=== PATIENT | male | born 1980 | race American Indian/Alaskan Native ===

== ENCOUNTER 2019-08-09 12:00 | Observation (INO) | payer MEDICAID, OTHER ==
[~2019-08-09 12:00] MED LIST: Albuterol/Ipratropium 3.0-0.5 MG/3 ML Neb Soln NEB ONE
[2019-08-09] MEDS ORDERED: Albuterol/Ipratropium 3.0-0.5 MG/3 ML Neb Soln NEB ONE (12:16)
[2019-08-09] MEDS ORDERED: methylPREDNISolone Sodium Succinate 125 MG/2 ML SDV IVPUSH ONE (12:16)
[2019-08-09] MEDS ORDERED: Magnesium Sulfate/Water 100 ML IV ONE (12:17)
[2019-08-09 13:42] LABS: ANION GAP 13.3 mEq/L (7-13); CHLORIDE,CL 102 mmol/L (98-107); SODIUM,NA 138 mmol/L (136-145)
--- NOTE | 2019-08-09 13:46 | CR ---
PROCEDURE INFORMATION: Exam: XR Chest, 1 View Exam date and time: 08/09/2019 1:07 PM Age: 39 years old Clinical indication: Shortness of breath; Asthma. TECHNIQUE: Imaging protocol: XR of the chest Views: 1 view. COMPARISON: CR CHEST PA/LAT 02/06/2008 6:10 AM FINDINGS: Lungs: The lungs are somewhat hyperinflated, and there is bilateral central bronchial wall thickening, which can be seen with asthma. No focal peripheral lung consolidation, air bronchogram formation, or silhouette sign. Pleural space: No pleural effusion or pneumothorax. Heart/Mediastinum: The cardiac silhouette is not enlarged. The mediastinal contours are normal. Bones/joints: No acute osseous abnormality. Soft tissues: There is a small left epicardial fat pad. IMPRESSION: Findings which can be seen with asthma. No pneumonia.
[2019-08-09 14:13] LABS: BASE EXCESS ARTERIAL -3 mmol/L ((-2)-(+3)); BICARBONATE,ARTERIAL 20.6 mmol/L (22-26); O2 DELIVERY DEVICE NASAL CANNULA; O2 SATURATION ARTERIAL 92 % (95-100); PCO2 ARTERIAL 36 mmHg (35-45); PO2 ARTERIAL 69 mmHg (70-100)
[2019-08-09 14:14] LABS: ALLEN TEST PERFORMED
--- NOTE | 2019-08-09 14:59 | EDM.PDOC ---
Scribed by Cleopatra Mason 08/09/19 1174 for Robert Delgado MD ED HPI GENERAL MEDICAL PROBLEM - General Chief Complaint: Asthma Stated Complaint: AMBULANCE Time Seen by Provider: 08/09/19 12:03 Source of Information: Reports: Patient, EMS, EMS Notes Reviewed, RN, RN Notes Reviewed - History of Present Illness INITIAL COMMENTS - FREE TEXT/NARRATIVE: Patient arrives to ER by [facility]. Patient has had increasing shortness of breath for the last couple of days, worse today. He has been using inhaler with little relief. He complains of right upper chest wall pain when taking deep breaths. He has been using Musinex DM at home. Pt states he never had any lung problems until last year, when he was diagnosed with asthma and COPD. He continues to smoke cigarettes. Denies fever, chills, edema, rash, any recent travel, or COVID exposures. Onset: Gradual Duration: Getting Worse Location: Reports: Chest Severity: Moderate Improves with: Reports: None Worsens with: Reports: None Associated Symptoms: Reports: No Other Symptoms Generalized Pain Score (Numeric/FACES): 4 - Related Data Allergies Allergy/AdvReac Type Severity Reaction Status Date / Time No Known Allergies Allergy Verified 08/09/19 12:00 Home Meds: Home Meds Fluticasone Propion/Salmeterol [Wixela 250-50 Inhub] 1 puff INH BID 08/09/19 [History] Past Medical History Respiratory History: Reports: Asthma, COPD Social & Family History - Family History Family Medical History: Noncontributory - Tobacco Use Smoking Status *Q: Current Every Day Smoker Tobacco Use Within Last Twelve Months: Cigarettes Years of Tobacco use: 20 Packs/Tins Daily: 0.2 Used Tobacco, but Quit: No Second Hand Smoke Exposure: Yes - Caffeine Use Caffeine Use: Reports: Soda - Recreational Drug Use Recreational Drug Use: No - Living Situation & Occupation Living situation: Reports: with Family ED ROS GENERAL - Review of Systems Review Of Systems: Comprehensive ROS is negative, except as noted in HPI. ED EXAM, GENERAL - Physical Exam Exam: See Below Exam Limited By: No Limitations General Appearance: Alert, No Apparent Distress, Thin Eye Exam: Bilateral Eye: Normal Inspection Nose: Normal Inspection Throat/Mouth: Normal Inspection, Normal Lips, Normal Voice, No Airway Compromise. No: Perioral Cyanosis Head: Atraumatic, Normocephalic Neck: Normal Inspection, Supple, Non-Tender, Full Range of Motion Respiratory/Chest: No Respiratory Distress, No Accessory Muscle Use, Chest Non- Tender, Decreased Breath Sounds, Wheezing. No: Crackles, Rales, Rhonchi, Stridor Cardiovascular: Regular Rate, Rhythm, No Edema, Tachycardia GI/Abdominal: Normal Bowel Sounds, Soft, Non-Tender Back Exam: Normal Inspection Extremities: Normal Inspection, Normal Range of Motion, Non-Tender, Normal Capillary Refill, No Pedal Edema Neurological: Alert, Oriented, CN II-XII Intact, Normal Cognition, No Motor/Sensory Deficits Psychiatric: Normal Affect, Normal Mood Skin Exam: Warm, Dry, Intact, Normal Color, No Rash Course - Vital Signs Last Recorded V/S: Last Vital Signs Temp 98.9 F 08/09/19 12:03 Pulse 108 H 08/09/19 12:32 Resp 24 H 08/09/19 12:03 BP 139/73 08/09/19 12:03 Pulse Ox 84 L 08/09/19 12:03 - Orders/Labs/Meds Orders: Active Orders 24 hr Category Date Time Status RT Aerosol Therapy [RC] ASDIRECTED Care 08/09/19 12:01 Active RT Aerosol Therapy [RC] ASDIRECTED Care 08/09/19 12:17 Active Labs: Laboratory Tests 08/09/19 08/09/19 08/09/19 Range/Units 13:17 13:17 14:06 WBC 10.9 H (5.0-10.0) 10^3/uL RBC 5.16 (4.6-6.2) 10^6/uL Hgb 15.3 (14.0-18.0) g/dL Hct 44.7 (40.0-54.0) % MCV 86.6 (80-100) fL MCH 29.7 (27.0-34.0) pg MCHC 34.2 (33.0-35.0) g/dL Plt Count 343 (150-450) 10^3/uL Neut % (Auto) 68.1 (42.2-75.2) % Lymph % (Auto) 17.4 L (20.5-50.1) % Lyman % (Auto) 5.5 (2-8) % Eos % (Auto) 8.6 H (1.0-3.0) % Baso % (Auto) 0.4 (0.0-1.0) % ABG pH 7.38 (7.35-7.45) ABG pCO2 36 (35-45) mmHg ABG pO2 69 L (70-100) mmHg ABG HCO3 20.6 L (22-26) mmol/L ABG O2 Saturation 92 L (95-100) % ABG Base Excess -3 L ((-2)-(+3)) mmol/L Basil Test Performed O2 Delivery Device Nasal cannula Sodium 138 (136-145) mmol/L Potassium 4.3 (3.5-5.1) mmol/L Chloride 102 (98-107) mmol/L Carbon Dioxide 27 (21-32) mmol/L Anion Gap 13.3 H (7-13) mEq/L BUN 7 (7-18) mg/dL Creatinine 0.96 (0.70-1.30) mg/dL Est Cr Clr Drug Dosing 87.74 mL/min Estimated GFR (MDRD) > 60 BUN/Creatinine Ratio 7.3 (No establ ref range) Glucose 126 H (74-99) mg/dL Calcium 9.4 (8.5-10.1) mg/dL Total Bilirubin 0.6 (0.2-1.0) mg/dL AST 21 (15-37) U/L ALT 36 (16-63) U/L Alkaline Phosphatase 89 (46-116) U/L Total Protein 8.1 (6.4-8.2) g/dL Albumin 4.4 (3.4-5.0) g/dL Globulin 3.7 Albumin/Globulin Ratio 1.2 SARS-CoV-2 RNA (RT-PCR) (NEGATIVE) 08/09/19 Range/Units 14:25 WBC (5.0-10.0) 10^3/uL RBC (4.6-6.2) 10^6/uL Hgb (14.0-18.0) g/dL Hct (40.0-54.0) % MCV (80-100) fL MCH (27.0-34.0) pg MCHC (33.0-35.0) g/dL Plt Count (150-450) 10^3/uL Neut % (Auto) (42.2-75.2) % Lymph % (Auto) (20.5-50.1) % Lyman % (Auto) (2-8) % Eos % (Auto) (1.0-3.0) % Baso % (Auto) (0.0-1.0) % ABG pH (7.35-7.45) ABG pCO2 (35-45) mmHg ABG pO2 (70-100) mmHg ABG HCO3 (22-26) mmol/L ABG O2 Saturation (95-100) % ABG Base Excess ((-2)-(+3)) mmol/L Basil Test O2 Delivery Device Sodium (136-145) mmol/L Potassium (3.5-5.1) mmol/L Chloride (98-107) mmol/L Carbon Dioxide (21-32) mmol/L Anion Gap (7-13) mEq/L BUN (7-18) mg/dL Creatinine (0.70-1.30) mg/dL Est Cr Clr Drug Dosing mL/min Estimated GFR (MDRD) BUN/Creatinine Ratio (No establ ref range) Glucose (74-99) mg/dL Calcium (8.5-10.1) mg/dL Total Bilirubin (0.2-1.0) mg/dL AST (15-37) U/L ALT (16-63) U/L Alkaline Phosphatase (46-116) U/L Total Protein (6.4-8.2) g/dL Albumin (3.4-5.0) g/dL Globulin Albumin/Globulin Ratio SARS-CoV-2 RNA (RT-PCR) Negative (NEGATIVE) Meds: Medications Discontinued Medications Generic Name Dose Route Start Last Admin Trade Name Romana PRN Reason Stop Dose Admin Albuterol/Ipratropium 3 ml 08/09/19 12:00 08/09/19 12:02 Duoneb 3.0-0.5 Mg/3 Ml NEB 08/09/19 12:01 3 ml ONETIME ONE Administration Albuterol/Ipratropium 3 ml 08/09/19 12:16 08/09/19 12:23 Duoneb 3.0-0.5 Mg/3 Ml NEB 08/09/19 12:17 3 ml ONETIME ONE Administration Magnesium Sulfate 100 mls @ 200 mls/hr 08/09/19 12:17 08/09/19 12:27 Magnesium Sulfate In Water Premix IV 08/09/19 12:46 200 mls/hr ONETIME ONE Administration Methylprednisolone Sodium Succinate 125 mg 08/09/19 12:16 08/09/19 12:19 Solu-Medrol IVPUSH 08/09/19 12:17 125 mg ONETIME ONE Administration - Radiology Interpretation Free Text/Narrative:: [facility] [place] [facility] Final Radiology Report Call: [phone] assistance Online chat: [email or web address] Name: PAT BERMAN III Age: 39Years M Date: 08/09/2019 SSN: -- : [id number] Study: CR CHEST 1V FRONTAL Requesting Physician: ROBERT DELGADO Images: 1 Addl Studies: Provided Clinical History: SOB Contrast: Contrast Medium: Contrast Amount: Contrast Method: CONFIDENTIALITY STATEMENT This report is intended only for use by the referring physician, and only in accordance with law. If you received this in error, call [phone]. Page 1 of 1 PROCEDURE INFORMATION: Exam: XR Chest, 1 View Exam date and time: 08/09/2019 1:07 PM Age: 39 years old Clinical indication: Shortness of breath; Asthma. TECHNIQUE: Imaging protocol: XR of the chest Views: 1 view. COMPARISON: CR CHEST PA/LAT 02/06/2008 6:10 AM FINDINGS: Lungs: The lungs are somewhat hyperinflated, and there is bilateral central bronchial wall thickening, which can be seen with asthma. No focal peripheral lung consolidation, air bronchogram formation, or silhouette sign. Pleural space: No pleural effusion or pneumothorax. Heart/Mediastinum: The cardiac silhouette is not enlarged. The mediastinal contours are normal. Bones/joints: No acute osseous abnormality. Soft tissues: There is a small left epicardial fat pad. IMPRESSION: Findings which can be seen with asthma. No pneumonia. Thank you for allowing us to participate in the care of your patient. Dictated and Authenticated by: Vini Saeed MD 08/09/2019 1:45 PM Central Time ([place] & [place]) - Re-Assessments/Exams Free Text/Narrative Re-Assessment/Exam: 08/09/19 14:57 Plan to admit pt to Dr. Valerio for exacerbation of asthma/COPD. Departure - Departure Time of Disposition: 14:58 (admitted to Dr. Valerio) Disposition: Admitted As Inpatient 65 Condition: Fair Clinical Impression: Acute exacerbation of COPD with asthma - Discharge Information *PRESCRIPTION DRUG MONITORING PROGRAM REVIEWED*: Not Applicable *COPY OF PRESCRIPTION DRUG MONITORING REPORT IN PATIENT ABDIAZIZ: Not Applicable Forms: ED Department Discharge Sepsis Event Note (ED) - Evaluation Sepsis Screening Result: No Definite Risk - Focused Exam Vital Signs: Vital Signs Temp Pulse Resp BP Pulse Ox 08/09/19 12:32 108 H 08/09/19 12:03 98.9 F 110 H 24 H 139/73 84 L 08/09/19 12:01 110 H - My Orders Last 24 Hours: My Active Orders 08/09/19 12:01 RT Aerosol Therapy [RC] ASDIRECTED 08/09/19 12:17 RT Aerosol Therapy [RC] ASDIRECTED - Assessment/Plan Last 24 Hours: My Active Orders 08/09/19 12:01 RT Aerosol Therapy [RC] ASDIRECTED 08/09/19 12:17 RT Aerosol Therapy [RC] ASDIRECTED I have read and agree with the documentation that has been completed regarding this visit. By signing this record, I attest that the documentation was completed in my physical presence and is an accurate record of the encounter.
--- NOTE | 2019-08-09 15:50 | PCM.HP ---
H&P History of Present Illness - General Date of Service: 08/09/19 Admit Problem/Dx: Admitted with : Asthma/COPD exacerbation Source of Information: Patient, EMS Notes Reviewed, Old Records History Limitations: Reports: No Limitations - History of Present Illness Initial Comments - Free Text/Narative: This is a 39 Y/O M with history of smoking, started smoke at age 18 and still smoking. He said he was told 10 years ag o he has COPD but did not see any lung doctor, he says 3 months ago he was told that he needs to see lung doctor but no appointment has been made. Today ( 08/08) the Patient arrives to ER by [facility]. Patient has had increasing shortness of breath for the last couple of days, worse today said aftrer the rain last night it is getting more difficult to breath . He has been using inhaler with little relief. He complains of right upper chest wall pain when taking deep breaths. He has been using Musinex DM at home. Pt states he never had any lung problems like this He continues to smoke cigarettes. Denies fever, chills, edema, rash, any recent travel, or COVID expos ures. His rapid Covid-19 was negative. He is admitted for Asthma/COPD exacerbation. He had CXR that showed hyperinflated lung, no pleural effusion or pulmonary edema, ni significant infiltrates. Onset of Symptoms: Reports: Gradual Duration of Symptoms: Reports: Day(s): Associated Symptoms: Reports: Shortness of Breath Generalized Pain Score (Numeric/FACES): 4 - Related Data Allergies/Adverse Reactions: Allergies Allergy/AdvReac Type Severity Reaction Status Date / Time No Known Allergies Allergy Verified 08/09/19 12:00 Home Medications: Home Meds Fluticasone Propion/Salmeterol [Wixela 250-50 Inhub] 1 puff INH BID 08/09/19 [History] Past Medical History HEENT History: Reports: None Cardiovascular History: Reports: SOB on Exertion Respiratory History: Reports: Asthma, COPD, SOB Gastrointestinal History: Reports: GERD Musculoskeletal History: Reports: Back Pain, Chronic Other Musculoskeletal History: hx. fracture 5th vertabrea Psychiatric History: Reports: Addiction - Infectious Disease History Infectious Disease History: Reports: None - Past Surgical History Other HEENT Surgeries/Procedures: fingernail caught in right eye back in 4 or 5th grade. Wore a patch and put dye in. Cardiovascular Surgical History: Reports: None Respiratory Surgical History: Reports: None GI Surgical History: Reports: None Musculoskeletal Surgical History: Reports: None Social & Family History - Family History Family Medical History: Noncontributory - Tobacco Use Smoking Status *Q: Current Every Day Smoker Years of Tobacco use: 21 Packs/Tins Daily: 0.2 Used Tobacco, but Quit: No Second Hand Smoke Exposure: No - Caffeine Use Caffeine Use: Reports: Coffee, Soda - Recreational Drug Use Recreational Drug Use: Yes Drug Use in Last 12 Months: Yes Recreational Drug Type: Reports: Marijuana/Hashish Other Recreational Drug Type: last used THC yesterday Recreational Drug Use Frequency: Daily - Living Situation & Occupation Living situation: Reports: with Family H&P Review of Systems - Review of Systems: Review Of Systems: See Below General: Reports: Weakness. Denies: Fever, Chills, Weight Loss, Weight Gain HEENT: Denies: Dysphasia, Hearing Changes, Sinus Congestion, Sore Throat, Visual Changes Pulmonary: Reports: Shortness of Breath, Wheezing. Denies: Pleuritic Chest Pain, Cough, Sputum Cardiovascular: Reports: Dyspnea on Exertion. Denies: Chest Pain, Orthopnea, Edema, Lightheadedness Gastrointestinal: Denies: Abdominal Pain, Diarrhea, Difficulty Swallowing, Vomiting Genitourinary: Denies: Dysuria, Frequency, Burning, Hematuria, Flank Pain Musculoskeletal: Denies: Neck Pain, Shoulder Pain, Leg Pain, Muscle Stiffness Skin: Denies: Cyanosis, Jaundice, Bruising, Pruritis, Rash Psychiatric: Denies: Confusion, Anxiety, Agitation Neurological: Denies: Confusion, Dizziness, Tremors, Difficulty Walking Hematologic/Lymphatic: Reports: No Symptoms Immunologic: Reports: No Symptoms Exam - Exam Exam: See Below - Vital Signs Vital Signs: Last Vital Signs Temp 37.2 C 08/09/19 12:03 Pulse 108 H 08/09/19 12:32 Resp 24 H 08/09/19 12:03 BP 139/73 08/09/19 12:03 Pulse Ox 84 L 08/09/19 12:03 Weight: 60.441 kg - Exam Quality Assessment: Supplemental Oxygen, DVT Prophylaxis. No: Urinary Catheter General: Alert, Oriented, Cooperative, Other (Not in acute Distress) HEENT: Conjunctiva Clear, EOMI, Mucosa Moist & Newell, Pupils Equal Neck: Supple. No: Lymphadenopathy, JVD, Thyromegaly Lungs: Clear to Auscultation, Normal Respiratory Effort, Wheezing Cardiovascular: Regular Rate, Regular Rhythm GI/Abdominal Exam: Normal Bowel Sounds, Non-Tender, No Organomegaly, No Distention. No: Rebound, Tender (Male) Exam: Deferred Rectal (Males) Exam: Deferred Back Exam: Normal Inspection, Full Range of Motion Extremities: Normal Inspection, Non-Tender, No Pedal Edema Skin: Warm, Dry, Intact Neurological: Cranial Nerves Intact, Reflexes Equal Bilateral Neuro Extensive - Mental Status: Alert, Oriented x3, Normal Mood/Affect, Normal Cognition, Memory Intact Neuro Extensive - Motor, Sensory, Reflexes: CN II-XII Intact, Normal Gait, Normal Reflexes Psychiatric: Alert, Normal Affect, Normal Mood - Patient Data Lab Results Last 24 hrs: Laboratory Results - last 24 hr 08/09/19 08/09/19 08/09/19 Range/Units 13:17 13:17 14:06 WBC 10.9 H (5.0-10.0) 10^3/uL RBC 5.16 (4.6-6.2) 10^6/uL Hgb 15.3 (14.0-18.0) g/dL Hct 44.7 (40.0-54.0) % MCV 86.6 (80-100) fL MCH 29.7 (27.0-34.0) pg MCHC 34.2 (33.0-35.0) g/dL Plt Count 343 (150-450) 10^3/uL Neut % (Auto) 68.1 (42.2-75.2) % Lymph % (Auto) 17.4 L (20.5-50.1) % Stewart % (Auto) 5.5 (2-8) % Eos % (Auto) 8.6 H (1.0-3.0) % Baso % (Auto) 0.4 (0.0-1.0) % ABG pH 7.38 (7.35-7.45) ABG pCO2 36 (35-45) mmHg ABG pO2 69 L (70-100) mmHg ABG HCO3 20.6 L (22-26) mmol/L ABG O2 Saturation 92 L (95-100) % ABG Base Excess -3 L ((-2)-(+3)) mmol/L Basil Test Performed O2 Delivery Device Nasal cannula Sodium 138 (136-145) mmol/L Potassium 4.3 (3.5-5.1) mmol/L Chloride 102 (98-107) mmol/L Carbon Dioxide 27 (21-32) mmol/L Anion Gap 13.3 H (7-13) mEq/L BUN 7 (7-18) mg/dL Creatinine 0.96 (0.70-1.30) mg/dL Est Cr Clr Drug Dosing 87.74 mL/min Estimated GFR (MDRD) > 60 BUN/Creatinine Ratio 7.3 (No establ ref range) Glucose 126 H (74-99) mg/dL Calcium 9.4 (8.5-10.1) mg/dL Total Bilirubin 0.6 (0.2-1.0) mg/dL AST 21 (15-37) U/L ALT 36 (16-63) U/L Alkaline Phosphatase 89 (46-116) U/L Total Protein 8.1 (6.4-8.2) g/dL Albumin 4.4 (3.4-5.0) g/dL Globulin 3.7 Albumin/Globulin Ratio 1.2 SARS-CoV-2 RNA (RT-PCR) (NEGATIVE) 08/09/19 Range/Units 14:25 WBC (5.0-10.0) 10^3/uL RBC (4.6-6.2) 10^6/uL Hgb (14.0-18.0) g/dL Hct (40.0-54.0) % MCV (80-100) fL MCH (27.0-34.0) pg MCHC (33.0-35.0) g/dL Plt Count (150-450) 10^3/uL Neut % (Auto) (42.2-75.2) % Lymph % (Auto) (20.5-50.1) % Stewart % (Auto) (2-8) % Eos % (Auto) (1.0-3.0) % Baso % (Auto) (0.0-1.0) % ABG pH (7.35-7.45) ABG pCO2 (35-45) mmHg ABG pO2 (70-100) mmHg ABG HCO3 (22-26) mmol/L ABG O2 Saturation (95-100) % ABG Base Excess ((-2)-(+3)) mmol/L Basil Test O2 Delivery Device Sodium (136-145) mmol/L Potassium (3.5-5.1) mmol/L Chloride (98-107) mmol/L Carbon Dioxide (21-32) mmol/L Anion Gap (7-13) mEq/L BUN (7-18) mg/dL Creatinine (0.70-1.30) mg/dL Est Cr Clr Drug Dosing mL/min Estimated GFR (MDRD) BUN/Creatinine Ratio (No establ ref range) Glucose (74-99) mg/dL Calcium (8.5-10.1) mg/dL Total Bilirubin (0.2-1.0) mg/dL AST (15-37) U/L ALT (16-63) U/L Alkaline Phosphatase (46-116) U/L Total Protein (6.4-8.2) g/dL Albumin (3.4-5.0) g/dL Globulin Albumin/Globulin Ratio SARS-CoV-2 RNA (RT-PCR) Negative (NEGATIVE) Result Diagrams: 08/09/19 13:17 08/09/19 13:17 - Problem List (1) Acute exacerbation of COPD with asthma SNOMED Code(s): 3372149926558 ICD Code: J44.1 - CHRONIC OBSTRUCTIVE PULMONARY DISEASE W (ACUTE) EXACERBATIO N; J45.901 - UNSPECIFIED ASTHMA WITH (ACUTE) EXACERBATION Status: Acute Current Visit: No Problem List Initiated/Reviewed/Updated: Yes Orders Last 24hrs: Active Orders 24 hr Category Date Time Status RT Aerosol Therapy [RC] ASDIRECTED Care 08/09/19 12:17 Active Assessment/Plan Comment:: This is a 39 y/O male with 21 year history of smoking and a current smoker came to ER with Increased shortness of breath and his inhaler did nor Improve his shortness of breath, Impression and plan: 1. Increased shortness of breath: This is secondary to Asthma/COPD exacerbation -Will continue Solumedrol 60 mg IV Q6 hrs -Will start scheduled Due nebs - start Albuterol as needed -Encourage using incentive spirometry and Flutter valve -will start Zosyn -Continue to wean off oxygen as tolerated -discussed about cessation of smoking -He needs to be evaluated at Pulmonary clinic after the Discharge -BMP in AM 2. Smoking: He is a current smoker - place Nicotine patch -Need to quit smoking GI prophylaxis: Start protonix 20 mg daily with breaffast DVT prophylaxis: Start Enoxapain Code Status: Full Code
[2019-08-09] MEDS ORDERED: Docusate Sodium 100 MG Cap PO PRN (16:07)
[2019-08-09] MEDS ORDERED: Albuterol 0.083% 2.5 MG/3 ML Neb Soln NEB PRN (16:51)
[2019-08-09] MEDS: Piperacillin/Tazobactam 3.375 GM in Sodium Chloride 0.9% 100 ML IV SCH ×2 (17:05→23:35)
[2019-08-09] MEDS: Albuterol/Ipratropium 3.0-0.5 MG/3 ML Neb Soln NEB SCH ×2 (18:34→23:08)
[2019-08-09] MEDS ORDERED: Albuterol 0.083% 2.5 MG/3 ML Neb Soln NEB SCH (19:00)
[2019-08-09] MEDS: methylPREDNISolone Sodium Succinate 40 MG/1 ML SDV IVPUSH SCH (20:49)
[2019-08-09] MEDS: diphenhydrAMINE 25 MG Tab PO PRN (20:49)
[2019-08-09] MEDS ORDERED: Non-Formulary Medication 1 Each (Fluticasone Propion/Salmeterol 1 PUFF) INH SCH (21:00)
[2019-08-09] MEDS: Acetaminophen 325 MG Tab PO PRN (23:12)
[2019-08-10] MEDS: diphenhydrAMINE 25 MG Tab PO PRN ×3 (02:35→16:40)
[2019-08-10] MEDS: methylPREDNISolone Sodium Succinate 40 MG/1 ML SDV IVPUSH SCH ×5 (02:35→22:53)
[2019-08-10] MEDS: Albuterol/Ipratropium 3.0-0.5 MG/3 ML Neb Soln NEB SCH ×6 (02:39→23:04)
[2019-08-10] MEDS: Pantoprazole 40 MG Tab.CR PO SCH (05:30)
[2019-08-10] MEDS: Piperacillin/Tazobactam 3.375 GM in Sodium Chloride 0.9% 100 ML IV SCH ×4 (05:30→22:59)
[2019-08-10 06:54] LABS: ANION GAP 13.9 mEq/L (7-13); CHLORIDE,CL 104 mmol/L (98-107); SODIUM,NA 139 mmol/L (136-145)
[2019-08-10] MEDS: Acetaminophen 325 MG Tab PO PRN ×2 (08:59→15:07)
[2019-08-10] MEDS: Enoxaparin 40 MG/0.4 ML Syringe SUBCUT SCH ×2 (09:00→09:07)
[2019-08-10] MEDS: Nicotine 14 MG/24 Hr Patch TRDERM SCH (09:01)
--- NOTE | 2019-08-10 10:58 | PCM.PN ---
- General Info Date of Service: 08/10/19 Admission Dx/Problem (Free Text): Admitted with : Asthma/COPD exacerbation Subjective Update: Today he was seen in room feels much better off supplemental oxygen but still gets short of breath with minor activity. he has no fever, Chill, appetite is good, No nausea or Vomiting Functional Status: Reports: Pain Controlled, Tolerating Diet, Ambulating, Urinating - Review of Systems General: Reports: Weakness, Appetite (acceptable). Denies: Fever, Chills HEENT: Denies: Headaches, Sinus Congestion, Sore Throat, Visual Changes Pulmonary: Reports: Shortness of Breath, Wheezing. Denies: Cough Cardiovascular: Reports: Dyspnea on Exertion. Denies: Chest Pain, Lightheadedness Gastrointestinal: Denies: Abdominal Pain, Difficulty Swallowing, Nausea, Vomiting Genitourinary: Denies: Dysuria, Burning, Urgency, Flank Pain Musculoskeletal: Denies: Neck Pain, Leg Pain, Joint Swelling Skin: Denies: Cyanosis, Jaundice, Bruising, Pruritis, Rash Neurological: Denies: Confusion, Numbness, Tremors Psychiatric: Denies: Confusion, Anxiety, Agitation - Patient Data Vitals - Most Recent: Last Vital Signs Temp 36.9 C 08/10/19 08:00 Pulse 96 08/10/19 08:00 Resp 22 H 08/10/19 08:00 BP 132/82 08/10/19 08:00 Pulse Ox 90 L 08/10/19 09:03 Weight - Most Recent: 60.441 kg I&O - Last 24 Hours: Intake & Output 08/09/19 08/10/19 08/10/19 22:59 06:59 14:59 Intake Total 360 360 Balance 360 360 Lab Results Last 24 Hours: Laboratory Results - last 24 hr 08/09/19 08/09/19 08/09/19 Range/Units 13:17 13:17 14:06 WBC 10.9 H (5.0-10.0) 10^3/uL RBC 5.16 (4.6-6.2) 10^6/uL Hgb 15.3 (14.0-18.0) g/dL Hct 44.7 (40.0-54.0) % MCV 86.6 (80-100) fL MCH 29.7 (27.0-34.0) pg MCHC 34.2 (33.0-35.0) g/dL Plt Count 343 (150-450) 10^3/uL Neut % (Auto) 68.1 (42.2-75.2) % Lymph % (Auto) 17.4 L (20.5-50.1) % Bee % (Auto) 5.5 (2-8) % Eos % (Auto) 8.6 H (1.0-3.0) % Baso % (Auto) 0.4 (0.0-1.0) % ABG pH 7.38 (7.35-7.45) ABG pCO2 36 (35-45) mmHg ABG pO2 69 L (70-100) mmHg ABG HCO3 20.6 L (22-26) mmol/L ABG O2 Saturation 92 L (95-100) % ABG Base Excess -3 L ((-2)-(+3)) mmol/L Basil Test Performed O2 Delivery Device Nasal cannula Sodium 138 (136-145) mmol/L Potassium 4.3 (3.5-5.1) mmol/L Chloride 102 (98-107) mmol/L Carbon Dioxide 27 (21-32) mmol/L Anion Gap 13.3 H (7-13) mEq/L BUN 7 (7-18) mg/dL Creatinine 0.96 (0.70-1.30) mg/dL Est Cr Clr Drug Dosing 87.74 mL/min Estimated GFR (MDRD) > 60 BUN/Creatinine Ratio 7.3 (No establ ref range) Glucose 126 H (74-99) mg/dL Calcium 9.4 (8.5-10.1) mg/dL Total Bilirubin 0.6 (0.2-1.0) mg/dL AST 21 (15-37) U/L ALT 36 (16-63) U/L Alkaline Phosphatase 89 (46-116) U/L Total Protein 8.1 (6.4-8.2) g/dL Albumin 4.4 (3.4-5.0) g/dL Globulin 3.7 Albumin/Globulin Ratio 1.2 SARS-CoV-2 RNA (RT-PCR) (NEGATIVE) 08/09/19 08/10/19 08/10/19 Range/Units 14:25 06:15 06:15 WBC 7.9 (5.0-10.0) 10^3/uL RBC 4.84 (4.6-6.2) 10^6/uL Hgb 14.2 (14.0-18.0) g/dL Hct 41.4 (40.0-54.0) % MCV 85.5 (80-100) fL MCH 29.3 (27.0-34.0) pg MCHC 34.3 (33.0-35.0) g/dL Plt Count 337 (150-450) 10^3/uL Neut % (Auto) 92.5 H (42.2-75.2) % Lymph % (Auto) 6.6 L (20.5-50.1) % Bee % (Auto) 0.9 L (2-8) % Eos % (Auto) 0.0 L (1.0-3.0) % Baso % (Auto) 0.0 (0.0-1.0) % ABG pH (7.35-7.45) ABG pCO2 (35-45) mmHg ABG pO2 (70-100) mmHg ABG HCO3 (22-26) mmol/L ABG O2 Saturation (95-100) % ABG Base Excess ((-2)-(+3)) mmol/L Basil Test O2 Delivery Device Sodium 139 (136-145) mmol/L Potassium 3.9 (3.5-5.1) mmol/L Chloride 104 (98-107) mmol/L Carbon Dioxide 25 (21-32) mmol/L Anion Gap 13.9 H (7-13) mEq/L BUN 10 (7-18) mg/dL Creatinine 0.83 (0.70-1.30) mg/dL Est Cr Clr Drug Dosing 101.14 mL/min Estimated GFR (MDRD) > 60 BUN/Creatinine Ratio (No establ ref range) Glucose 146 H (74-99) mg/dL Calcium 9.1 (8.5-10.1) mg/dL Total Bilirubin (0.2-1.0) mg/dL AST (15-37) U/L ALT (16-63) U/L Alkaline Phosphatase (46-116) U/L Total Protein (6.4-8.2) g/dL Albumin (3.4-5.0) g/dL Globulin Albumin/Globulin Ratio SARS-CoV-2 RNA (RT-PCR) Negative (NEGATIVE) Med Orders - Current: Current Medications Acetaminophen (Tylenol) 650 mg PO Q4H PRN PRN Reason: Pain (mild 1-3 )/fever Last Admin: 08/10/19 08:59 Dose: 650 mg Documented by: Albuterol (Proventil Neb Soln) 2.5 mg NEB Q4HRRT PRN PRN Reason: Shortness of Breath Albuterol/Ipratropium (Duoneb 3.0-0.5 Mg/3 Ml) 3 ml NEB Q4HRRT [facility] Last Admin: 08/10/19 08:28 Dose: 3 ml Documented by: Diphenhydramine HCl (Benadryl) 25 mg PO QID PRN PRN Reason: Itching Last Admin: 08/10/19 08:59 Dose: 25 mg Documented by: Docusate Sodium (Colace) 100 mg PO DAILY PRN PRN Reason: Constipation Enoxaparin Sodium (Lovenox) 40 mg SUBCUT DAILY [facility] Last Admin: 08/10/19 09:07 Dose: Not Given Documented by: Piperacillin Sod/Tazobactam (Sod 3.375 gm/ Sodium Chloride) 100 mls @ 200 mls/hr IV Q6H [facility] Last Admin: 08/10/19 05:30 Dose: 200 mls/hr Documented by: Methylprednisolone Sodium Succinate (Solu-Medrol) 60 mg IVPUSH Q6H [facility] Last Admin: 08/10/19 09:04 Dose: 60 mg Documented by: Nicotine (Habitrol) 14 mg TRDERM DAILY [facility] Last Admin: 08/10/19 09:01 Dose: 14 mg Documented by: Non-Formulary Medication (Fluticasone Propion/Salmeterol) 1 puff INH BID [facility] Pantoprazole Sodium (Protonix) 40 mg PO ACBREAKFAST [facility] Last Admin: 08/10/19 05:30 Dose: 40 mg Documented by: Discontinued Medications Albuterol (Proventil Neb Soln) 2.5 mg NEB Q4HRRT [facility] Albuterol/Ipratropium (Duoneb 3.0-0.5 Mg/3 Ml) 3 ml NEB ONETIME ONE Stop: 08/09/19 12:01 Last Admin: 08/09/19 12:02 Dose: 3 ml Documented by: Albuterol/Ipratropium (Duoneb 3.0-0.5 Mg/3 Ml) 3 ml NEB ONETIME ONE Stop: 08/09/19 12:17 Last Admin: 08/09/19 12:23 Dose: 3 ml Documented by: Magnesium Sulfate (Magnesium Sulfate In Water Premix) 100 mls @ 200 mls/hr IV ONETIME ONE Stop: 08/09/19 12:46 Last Admin: 08/09/19 12:27 Dose: 200 mls/hr Documented by: Methylprednisolone Sodium Succinate (Solu-Medrol) 125 mg IVPUSH ONETIME ONE Stop: 08/09/19 12:17 Last Admin: 08/09/19 12:19 Dose: 125 mg Documented by: - Exam Quality Assessment: DVT Prophylaxis. No: Urine Catheter General: Alert, Oriented, Cooperative, No Acute Distress HEENT: Pupils Equal, Pupils Reactive, EOMI, Mucous Membr. Moist/Farm Loop Neck: Supple, No JVD, No Thyromegaly Lungs: Clear to Auscultation, Normal Respiratory Effort, Wheezing (mild) Cardiovascular: Regular Rate, Regular Rhythm, No Murmurs GI/Abdominal Exam: Normal Bowel Sounds, Soft, Non-Tender, No Distention. No: Guarding, Rebound (Male) Exam: Deferred Back Exam: Normal Inspection, Full Range of Motion Extremities: Normal Inspection, No Pedal Edema Skin: Warm, Dry, Intact Neurological: No New Focal Deficit Psy/Mental Status: Alert, Normal Affect, Normal Mood Sepsis Event Note - Evaluation Sepsis Screening Result: No Definite Risk - Focused Exam Vital Signs: Vital Signs Temp Pulse Resp BP Pulse Ox Pulse Ox Pulse Ox 08/10/19 09:03 90 L 08/10/19 08:00 36.9 C 96 22 H 132/82 94 L 08/10/19 02:45 75 93 L 08/10/19 02:43 37.1 C 118 H 20 140/75 93 L Date Exam was Performed: 08/10/19 Time Exam was Performed: 10:53 - Problem List & Annotations (1) Acute exacerbation of COPD with asthma SNOMED Code(s): 7724669908309 Code(s): J44.1 - CHRONIC OBSTRUCTIVE PULMONARY DISEASE W (ACUTE) EXACE RBATION; J45.901 - UNSPECIFIED ASTHMA WITH (ACUTE) EXACERBATION Status: Acute Current Visit: No - Problem List Review Problem List Initiated/Reviewed/Updated: Yes - My Orders Last 24 Hours: My Active Orders 08/09/19 16:07 Patient Status [ADT] Routine Up With Assistance [RC] ASDIRECTED Vital Signs [RC] 00,04,08,12,16,20 Acetaminophen [Tylenol] 650 mg PO Q4H PRN Docusate Sodium [Colace] 100 mg PO DAILY PRN DVT/VTE Prophylaxis Reflex [OM.PC] Routine Resuscitation Status Routine 08/09/19 16:11 Pulse Oximetry [RC] PRN 08/09/19 16:12 Antiembolic Devices [RC] .Routine VTE/DVT Education [RC] PER UNIT ROUTINE 08/09/19 16:22 Flutter Valve Therapy [RT Chest Physiotherapy] [RC] ASDIRECTED Incentive Spirometry [RT Incentive Spirometry] [RC] Q2HWA 08/09/19 16:51 Albuterol [Proventil Neb Soln] 2.5 mg NEB Q4HRRT PRN 08/09/19 16:52 RT Aerosol Therapy [RC] ASDIRECTED 08/09/19 17:00 Piperacillin/Tazobactam [Zosyn] 3.375 gm Sodium Chloride 0.9% [Normal Saline] 100 ml IV Q6H 08/09/19 Dinner Regular Diet [DIET] 08/09/19 19:00 Albuterol/Ipratropium [DuoNeb 3.0-0.5 MG/3 ML] 3 ml NEB Q4HRRT 08/09/19 20:00 methylPREDNISolone Sod Succ [Solu-MEDROL] 60 mg IVPUSH Q6H 08/09/19 20:33 diphenhydrAMINE [Benadryl] 25 mg PO QID PRN 08/09/19 21:00 Fluticasone Propion/Salmeterol 1 puff INH BID 08/10/19 06:00 Pantoprazole [ProTONIX] 40 mg PO ACBREAKFAST 08/10/19 09:00 Enoxaparin [Lovenox] 40 mg SUBCUT DAILY Nicotine [Habitrol] 14 mg TRDERM DAILY - Plan Plan:: This is a 39 y/O male with 21 year history of smoking and a current smoker came to ER with Increased shortness of breath and his inhaler did nor Improve his shortness of breath, Impression and plan: 1. Increased shortness of breath: This is secondary to Asthma/COPD exacerbation -Will change Solumedrol to 40 mg IV q6 hrs [ was at 60 mg IV Q6 hrs ] -Will continue scheduled Due nebs - will continue Albuterol as needed -Encourage using incentive spirometry and Flutter valve -will continue Zosyn -Continue to wean off oxygen as tolerated -discussed about cessation of smoking -He needs to be evaluated at Pulmonary clinic after the Discharge -BMP in AM 2. Smoking: He is a current smoker - place Nicotine patch -Need to quit smoking GI prophylaxis: Continue protonix 40 mg daily with breaffast DVT prophylaxis: continue Enoxapain Code Status: Full Code
[2019-08-10] MEDS ORDERED: Ondansetron 4 MG/2 ML SDV IVPUSH ONE (12:16)
[2019-08-10] MEDS ORDERED: Ondansetron 4 MG/2 ML SDV IVPUSH PRN (18:21)
[2019-08-11] MEDS: diphenhydrAMINE 25 MG Tab PO PRN ×2 (00:25→06:16)
[2019-08-11] MEDS: Albuterol/Ipratropium 3.0-0.5 MG/3 ML Neb Soln NEB SCH ×3 (03:07→15:21)
[2019-08-11] MEDS: methylPREDNISolone Sodium Succinate 40 MG/1 ML SDV IVPUSH SCH ×2 (05:32→15:22)
[2019-08-11] MEDS: Piperacillin/Tazobactam 3.375 GM in Sodium Chloride 0.9% 100 ML IV SCH (05:38)
[2019-08-11] MEDS: Pantoprazole 40 MG Tab.CR PO SCH (06:16)
[2019-08-11 06:50] LABS: ANION GAP 11.6 mEq/L (7-13); CHLORIDE,CL 103 mmol/L (98-107); SODIUM,NA 139 mmol/L (136-145)
[2019-08-11] MEDS: Nicotine 14 MG/24 Hr Patch TRDERM SCH (08:32)
[2019-08-11] MEDS: Enoxaparin 40 MG/0.4 ML Syringe SUBCUT SCH (08:33)
--- NOTE | 2019-08-11 10:03 | PCM.DCSUM1 ---
Discharge Summary - Hospital Course Free Text/Narrative:: This is a 39 y/O male with 21 year history of Asthma and a current smoker came to ER with Increased shortness of breath and his inhaler did not improve his shortness of breath, Impression and plan: 1. 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) Diagnosis: Stroke: No - Discharge Data Discharge Date: 08/11/19 Discharge Disposition: Home, Self-Care 01 Condition: Good - Referral to Home Health Primary Care Physician: [facility] - Patient Instructions Diet: Usual Diet as Tolerated Activity: As Tolerated - Discharge Plan *PRESCRIPTION DRUG MONITORING PROGRAM REVIEWED*: Not Applicable *COPY OF PRESCRIPTION DRUG MONITORING REPORT IN PATIENT ABDIAZIZ: Not Applicable Prescriptions/Med Rec: predniSONE [Prednisone] 20 mg PO DAILY #7 tablet Home Medications: Home Meds Albuterol Sulfate [Proair Hfa] 2 puff IH ASDIRECTED PRN 08/09/19 [History] Fluticasone Propion/Salmeterol [Wixela 250-50 Inhub] 1 puff INH BID 08/09/19 [History] predniSONE [Prednisone] 20 mg PO DAILY #7 tablet 08/11/19 [Rx] Oxygen Therapy Mode: Room Air Patient Handouts: Shortness of Breath, Adult, [id number] [facility] - - Discharge Summary/Plan Comment DC Time >30 min.: No - General Info Date of Service: 08/11/19 Functional Status: Reports: Pain Controlled - Review of Systems General: Denies: Fever, Weakness Pulmonary: Denies: Shortness of Breath Cardiovascular: Denies: Chest Pain, Edema Gastrointestinal: Denies: Abdominal Pain - Patient Data Vitals - Most Recent: Last Vital Signs Temp 98.9 F 08/11/19 07:53 Pulse 107 H 08/11/19 07:53 Resp 21 H 08/11/19 07:53 BP 110/71 08/11/19 07:53 Pulse Ox 96 08/11/19 07:53 Weight - Most Recent: 133 lb 4 oz I&O - Last 24 hours: Intake & Output 08/10/19 08/11/19 08/11/19 22:59 06:59 14:59 Intake Total 400 200 225 Balance 400 200 225 Lab Results - Last 24 hrs: Laboratory Results - last 24 hr 08/11/19 Range/Units 06:18 Sodium 139 (136-145) mmol/L Potassium 4.6 (3.5-5.1) mmol/L Chloride 103 (98-107) mmol/L Carbon Dioxide 29 (21-32) mmol/L Anion Gap 11.6 (7-13) mEq/L BUN 14 (7-18) mg/dL Creatinine 0.88 (0.70-1.30) mg/dL Est Cr Clr Drug Dosing 95.39 mL/min Estimated GFR (MDRD) > 60 Glucose 127 H (74-99) mg/dL Calcium 9.4 (8.5-10.1) mg/dL Med Orders - Current: Current Medications Acetaminophen (Tylenol) 650 mg PO Q4H PRN PRN Reason: Pain (mild 1-3 )/fever Last Admin: 08/10/19 15:07 Dose: 650 mg Documented by: Albuterol (Proventil Neb Soln) 2.5 mg NEB Q4HRRT PRN PRN Reason: Shortness of Breath Albuterol/Ipratropium (Duoneb 3.0-0.5 Mg/3 Ml) 3 ml NEB Q4HRRT [facility] Last Admin: 08/11/19 07:20 Dose: 3 ml Documented by: Diphenhydramine HCl (Benadryl) 25 mg PO QID PRN PRN Reason: Itching Last Admin: 08/11/19 06:16 Dose: 25 mg Documented by: Docusate Sodium (Colace) 100 mg PO DAILY PRN PRN Reason: Constipation Enoxaparin Sodium (Lovenox) 40 mg SUBCUT DAILY [facility] Last Admin: 08/11/19 08:33 Dose: Not Given Documented by: Piperacillin Sod/Tazobactam (Sod 3.375 gm/ Sodium Chloride) 100 mls @ 200 mls/hr IV Q6HR [facility] Methylprednisolone Sodium Succinate (Solu-Medrol) 40 mg IVPUSH Q6H [facility] Last Admin: 08/11/19 05:32 Dose: 40 mg Documented by: Miscellaneous Information (Check Patch) 1 ea TRDERM BEDTIME [facility] Nicotine (Habitrol) 14 mg TRDERM DAILY [facility] Last Admin: 08/11/19 08:32 Dose: 14 mg Documented by: Non-Formulary Medication (Fluticasone Propion/Salmeterol) 1 puff INH BID [facility] Ondansetron HCl (Zofran) 4 mg IVPUSH Q6H PRN PRN Reason: Nausea/Vomiting Last Admin: 08/10/19 18:37 Dose: 4 mg Documented by: Pantoprazole Sodium (Protonix) 40 mg PO ACBREAKFAST [facility] Last Admin: 08/11/19 06:16 Dose: 40 mg Documented by: Discontinued Medications Albuterol (Proventil Neb Soln) 2.5 mg NEB Q4HRRT [facility] Albuterol/Ipratropium (Duoneb 3.0-0.5 Mg/3 Ml) 3 ml NEB ONETIME ONE Stop: 08/09/19 12:01 Last Admin: 08/09/19 12:02 Dose: 3 ml Documented by: Albuterol/Ipratropium (Duoneb 3.0-0.5 Mg/3 Ml) 3 ml NEB ONETIME ONE Stop: 08/09/19 12:17 Last Admin: 08/09/19 12:23 Dose: 3 ml Documented by: Magnesium Sulfate (Magnesium Sulfate In Water Premix) 100 mls @ 200 mls/hr IV ONETIME ONE Stop: 08/09/19 12:46 Last Admin: 08/09/19 12:27 Dose: 200 mls/hr Documented by: Piperacillin Sod/Tazobactam (Sod 3.375 gm/ Sodium Chloride) 100 mls @ 200 mls/hr IV Q6H [facility] Last Infusion: 08/11/19 06:15 Dose: Infused Documented by: Methylprednisolone Sodium Succinate (Solu-Medrol) 125 mg IVPUSH ONETIME ONE Stop: 08/09/19 12:17 Last Admin: 08/09/19 12:19 Dose: 125 mg Documented by: Methylprednisolone Sodium Succinate (Solu-Medrol) 60 mg IVPUSH Q6H [facility] Last Admin: 08/10/19 09:04 Dose: 60 mg Documented by: Ondansetron HCl (Zofran) 4 mg IVPUSH ONETIME ONE Stop: 08/10/19 12:17 Last Admin: 07/05/20 12:32 Dose: 4 mg Documented by: - Exam Quality Assessment: Denies: Supplemental Oxygen General: Reports: Alert, Oriented Lungs: Reports: Wheezing (mild b/l ) Cardiovascular: Reports: Regular Rate, Regular Rhythm GI/Abdominal Exam: Normal Bowel Sounds, Soft, Non-Tender Extremities: No Pedal Edema
[2019-08-11] MEDS ORDERED: Piperacillin/Tazobactam 3.375 GM in Sodium Chloride 0.9% 100 ML IV SCH (12:00)
== END 2019-08-11 11:45 | disposition home or self-care (01) ==
LOC: DL.ED 12:00 → DL.MS 15:05 → UNDOADMOB 15:05 → DL.MS 16:07
PROVIDERS: ADMIT Internal Medicine Nephrology; ATTEND Internal Medicine Nephrology
DX: J44.1 Chronic obstructive pulmonary disease with (acute) exacerbation (principal); J45.901 Unspecified asthma with (acute) exacerbation; F17.210 Nicotine dependence, cigarettes, uncomplicated; K21.9 Gastro-esophageal reflux disease without esophagitis; G89.29 Other chronic pain; M54.9 Dorsalgia, unspecified; Z20.828 Contact with and (suspected) exposure to other viral communicable diseases; Z79.51 Long term (current) use of inhaled steroids; Z79.899 Other long term (current) drug therapy
CPT/HCPCS: 36415; 36600; 71045; 80048; 80053; 82803; 85025; 87635; 94640; A9270; J2405; J2543; J2920; J2930; J3475; J7050; 96365; 96366; 96367; 96375; 96376; 99284; 99285-25; G0378; J1650; J7620-GY; U0002

== ENCOUNTER 2019-11-26 23:48 | Observation (INO) | payer MEDICAID, OTHER ==
[2019-11-26] MEDS ORDERED: Dexamethasone 4 MG/ML SDV IVPUSH ONE (23:53)
[2019-11-26] MEDS ORDERED: Dexamethasone 4 MG/ML SDV ONE (23:55)
--- NOTE | 2019-11-27 00:22 | EDM.PDOC ---
ED HPI GENERAL MEDICAL PROBLEM - General Chief Complaint: Respiratory Problem Stated Complaint: AMBULANCE Time Seen by Provider: 11/26/19 23:55 Source of Information: Reports: Patient, EMS History Limitations: Reports: No Limitations - History of Present Illness INITIAL COMMENTS - FREE TEXT/NARRATIVE: ED via [facility] with c/o SOB Hx asthma ill x 4 days. Productive cough green phlegm. 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 Smoker, 2 cigs per day. No fever or chills. Chest pelaez, Tested last week negative for COVID. Admitted in August of asthma exacerbation. No nausea vomiting or diarrhea. Girl friend sick past 2 days. No known exposure to Covid person. States tightness and worsening after working on car and around exhaust fumes yesterday. Inhalers and nebs at home. Has used neb 5 times in 12 hours. Anterior Chest Pain Score (Numeric/FACES): 7 - Related Data Allergies Allergy/AdvReac Type Severity Reaction Status Date / Time methylprednisolone Allergy Itching Verified 11/27/19 02:51 Home Meds: Home Meds Albuterol Sulfate [Proair Hfa] 2 puff IH ASDIRECTED PRN 08/09/19 [History] Fluticasone Propion/Salmeterol [Wixela 250-50 Inhub] 1 puff INH BID 08/09/19 [History] methocarbamoL [Methocarbamol] 500 mg PO DAILY PRN 11/27/19 [History] Past Medical History HEENT History: Reports: None Cardiovascular History: Reports: SOB on Exertion Respiratory History: Reports: Asthma, COPD, SOB Gastrointestinal History: Reports: GERD Musculoskeletal History: Reports: Back Pain, Chronic Other Musculoskeletal History: hx. fracture 5th vertabrea Psychiatric History: Reports: Addiction - Infectious Disease History Infectious Disease History: Reports: None - Past Surgical History Other HEENT Surgeries/Procedures: fingernail caught in right eye back in 4 or 5th grade. Wore a patch and put dye in. Cardiovascular Surgical History: Reports: None Respiratory Surgical History: Reports: None GI Surgical History: Reports: None Musculoskeletal Surgical History: Reports: None Social & Family History - Family History Family Medical History: Noncontributory - Caffeine Use Caffeine Use: Reports: Coffee, Soda - Living Situation & Occupation Living situation: Reports: with Family ED ROS GENERAL - Review of Systems Review Of Systems: Comprehensive ROS is negative, except as noted in HPI. ED EXAM, GENERAL - Physical Exam Exam: See Below Exam Limited By: No Limitations General Appearance: Alert, Moderate Distress Eye Exam: Bilateral Eye: EOMI Ears: Normal External Exam Nose: Normal Inspection Throat/Mouth: Normal Inspection, Normal Voice Head: Atraumatic, Normocephalic Neck: Normal Inspection Respiratory/Chest: Decreased Breath Sounds, Wheezing (Bilateral), Accessory Muscle Use, Other (Dyspnea 2-3 words and with minimal exertion ) Cardiovascular: Regular Rate, Rhythm, Tachycardia GI/Abdominal: Normal Bowel Sounds, Soft Back Exam: Normal Inspection Extremities: Normal Range of Motion Neurological: Alert, Oriented, Normal Cognition Psychiatric: Anxious Skin Exam: Warm, Dry, Intact, Normal Color Course - Vital Signs Last Recorded V/S: Last Vital Signs Temp 98 F 11/27/19 00:19 Pulse 108 H 11/27/19 01:42 Resp 19 11/27/19 01:42 BP 134/87 11/27/19 01:39 Pulse Ox 94 L 11/27/19 01:42 - Orders/Labs/Meds Orders: Active Orders 24 hr Category Date Time Status EKG 12 Lead [EKG Documentation Completion] [RC] URGENT Care 11/26/19 23:48 Active EKG 12 Lead [EKG Documentation Completion] [RC] URGENT Care 11/26/19 23:49 Active CULTURE BLOOD [BC] Stat Lab 11/26/19 23:46 Results Isolation [COMM] Routine Oth 11/26/19 23:48 Active Labs: Laboratory Tests 11/27/19 11/27/19 11/27/19 Range/Units 00:05 00:09 00:09 WBC 10.3 H (5.0-10.0) 10^3/uL RBC 5.10 (4.6-6.2) 10^6/uL Hgb 15.4 (14.0-18.0) g/dL Hct 44.3 (40.0-54.0) % MCV 86.9 (80-100) fL MCH 30.2 (27.0-34.0) pg MCHC 34.8 (33.0-35.0) g/dL Plt Count 404 (150-450) 10^3/uL Neut % (Auto) 43.3 (42.2-75.2) % Lymph % (Auto) 27.9 (20.5-50.1) % [place] % (Auto) 7.2 (2-8) % Eos % (Auto) 21.2 H (1.0-3.0) % Baso % (Auto) 0.4 (0.0-1.0) % Add Manual Diff Yes Neutrophils % (Manual) 44 (42-75) % Lymphocytes % (Manual) 31 (20-50) % Monocytes % (Manual) 5 (2-8) % Eosinophils % (Manual) 20 H (1-3) % D-Dimer, Quantitative (0-400) ng/mL Sodium 136 (136-145) mmol/L Potassium 4.1 (3.5-5.1) mmol/L Chloride 101 (98-107) mmol/L Carbon Dioxide 24 (21-32) mmol/L Anion Gap 15.1 H (7-13) mEq/L BUN 8 (7-18) mg/dL Creatinine 0.99 (0.70-1.30) mg/dL Est Cr Clr Drug Dosing 94.82 mL/min Estimated GFR (MDRD) > 60 BUN/Creatinine Ratio 8.1 (No establ ref range) Glucose 104 H (74-99) mg/dL Lactic Acid (0.4-2.0) mmol/L Calcium 8.9 (8.5-10.1) mg/dL Total Bilirubin 0.3 (0.2-1.0) mg/dL AST 25 (15-37) U/L ALT 42 (16-63) U/L Alkaline Phosphatase 113 (46-116) U/L Troponin I < 0.017 (0.000-0.056) ng/mL Total Protein 8.1 (6.4-8.2) g/dL Albumin 4.2 (3.4-5.0) g/dL Globulin 3.9 Albumin/Globulin Ratio 1.1 SARS CoV-2 RNA Rapid DARIEL Negative (NEGATIVE) 11/27/19 11/27/19 Range/Units 00:09 00:09 WBC (5.0-10.0) 10^3/uL RBC (4.6-6.2) 10^6/uL Hgb (14.0-18.0) g/dL Hct (40.0-54.0) % MCV (80-100) fL MCH (27.0-34.0) pg MCHC (33.0-35.0) g/dL Plt Count (150-450) 10^3/uL Neut % (Auto) (42.2-75.2) % Lymph % (Auto) (20.5-50.1) % [place] % (Auto) (2-8) % Eos % (Auto) (1.0-3.0) % Baso % (Auto) (0.0-1.0) % Add Manual Diff Neutrophils % (Manual) (42-75) % Lymphocytes % (Manual) (20-50) % Monocytes % (Manual) (2-8) % Eosinophils % (Manual) (1-3) % D-Dimer, Quantitative < 100 (0-400) ng/mL Sodium (136-145) mmol/L Potassium (3.5-5.1) mmol/L Chloride (98-107) mmol/L Carbon Dioxide (21-32) mmol/L Anion Gap (7-13) mEq/L BUN (7-18) mg/dL Creatinine (0.70-1.30) mg/dL Est Cr Clr Drug Dosing mL/min Estimated GFR (MDRD) BUN/Creatinine Ratio (No establ ref range) Glucose (74-99) mg/dL Lactic Acid 1.7 (0.4-2.0) mmol/L Calcium (8.5-10.1) mg/dL Total Bilirubin (0.2-1.0) mg/dL AST (15-37) U/L ALT (16-63) U/L Alkaline Phosphatase (46-116) U/L Troponin I (0.000-0.056) ng/mL Total Protein (6.4-8.2) g/dL Albumin (3.4-5.0) g/dL Globulin Albumin/Globulin Ratio SARS CoV-2 RNA Rapid DARIEL (NEGATIVE) Meds: Medications Discontinued Medications Generic Name Dose Route Start Last Admin Trade Name Romana PRN Reason Stop Dose Admin Dexamethasone 6 mg 11/26/19 23:53 11/27/19 00:05 Dexamethasone IVPUSH 11/26/19 23:54 6 mg ONETIME ONE Administration Dexamethasone Confirm 11/26/19 23:55 11/27/19 00:32 Dexamethasone Administered 11/26/19 23:56 Not Given Dose 8 mg .ROUTE .STK-MED ONE - Re-Assessments/Exams Free Text/Narrative Re-Assessment/Exam: 11/27/19 01:25 Reports improvement in breathing, more relaxed able to talk without feeling as winded. Lungs improved exchange. fine wheeze bilateral bases. 11/27/19 01:42 Trial weaning oxygen, unable to tolerate less than 2L. Sats decrease 92% became dyspneic with conversation, increased wheezing. TC Dr Joseluis SAUCEDO Hospitalist, accepting patient for observation admission. Departure - Departure Time of Disposition: 02:06 Disposition: Refer to Observation Condition: Good Clinical Impression: Exacerbation of asthma Qualifiers: Asthma severity: moderate Asthma persistence: persistent Qualified Code(s): J45.41 - Moderate persistent asthma with (acute) exacerbation - Discharge Information *PRESCRIPTION DRUG MONITORING PROGRAM REVIEWED*: No *COPY OF PRESCRIPTION DRUG MONITORING REPORT IN PATIENT ABDIAZIZ: No Forms: ED Department Discharge Sepsis Event Note (ED) - Focused Exam Vital Signs: Vital Signs Temp Pulse Resp BP Pulse Ox 11/27/19 01:42 108 H 19 94 L 11/27/19 01:39 108 H 19 134/87 95 11/27/19 01:15 103 H 20 123/84 94 L 11/27/19 00:19 98 F 117 H 19 148/84 H 94 L - My Orders Last 24 Hours: My Active Orders 11/26/19 23:46 CULTURE BLOOD [BC] Stat 11/26/19 23:48 EKG 12 Lead [EKG Documentation Completion] [RC] URGENT Isolation [COMM] Routine 11/26/19 23:49 EKG 12 Lead [EKG Documentation Completion] [RC] URGENT - Assessment/Plan Last 24 Hours: My Active Orders 11/26/19 23:46 CULTURE BLOOD [BC] Stat 11/26/19 23:48 EKG 12 Lead [EKG Documentation Completion] [RC] URGENT Isolation [COMM] Routine 11/26/19 23:49 EKG 12 Lead [EKG Documentation Completion] [RC] URGENT
--- NOTE | 2019-11-27 00:35 | CR ---
PROCEDURE INFORMATION: Exam: XR Chest, 1 View Exam date and time: 11/26/2019 11:56 PM Age: 39 years old Clinical indication: Shortness of breath; Additional info: Cough SOB, asthma TECHNIQUE: Imaging protocol: XR of the chest Views: 1 view. COMPARISON: CR Chest 1V Frontal 08/09/2019 1:07 PM FINDINGS: Lungs: Hyperinflation bilaterally of moderate to severe nature suggesting air trapping from an upper respiratory infection, reactive airway disease, or COPD. No infiltrates. No edema. Pleural space: No pleural effusions. Heart/Mediastinum: Unremarkable. No cardiomegaly. Bones/joints: Unremarkable. Other findings: No significant change since prior study 08/09/2019. IMPRESSION: 1. Moderate to severe bilateral hyperinflation. No acute infiltrates or edema. 2. No pleural effusions.
[2019-11-27 00:39] LABS: ANION GAP 15.1 mEq/L (7-13); CHLORIDE,CL 101 mmol/L (98-107); SODIUM,NA 136 mmol/L (136-145)
[2019-11-27] MEDS ORDERED: Acetaminophen 325 MG Tab PO PRN (03:10)
[2019-11-27] MEDS ORDERED: Ondansetron 4 MG/2 ML SDV IVPUSH PRN (03:10)
[2019-11-27] MEDS ORDERED: Ondansetron 4 MG Tab.DIS PO PRN (03:10)
[2019-11-27] MEDS ORDERED: METHOCARBAMOL 500 MG PO PRN (03:13)
--- NOTE | 2019-11-27 03:15 | PCM.HP ---
H&P History of Present Illness - General Date of Service: 11/27/19 Admit Problem/Dx: Admission Diagnosis/Problem Admission Diagnosis/Problem Asthma exacerbation Source of Information: Patient History Limitations: Reports: No Limitations - History of Present Illness Initial Comments - Free Text/Narative: Patient is a 39-year-old male with a history of asthma and tobacco use disorder who presented with complaints of cough and shortness of breath. Patient reports productive cough and shortness of breath ongoing for the past 1 week. He reports that his girlfriend was also sick and he thought He Had caught bronchitis from her. Patient has needed to take his rescue inhaler at least twice a day since then. Reports compliance with his maintenance inhaler. He denies any fever or chest pain. He denies any exposure to Covid patient. Yesterday he was exposed to exhaust fumes from a vehicle for almost 3 hours. Afterwards his shortness of breath got worse. He used his rescue inhaler multiple times without significant improvement. Patient presented to ER very early today. Requires 2 L of oxygen by nasal cannula. Labs significant for mild leukocytosis of 10.3. Covid test was negative. Chest x-ray showed hyperinflated lungs but no infiltrates. Patient was found to be wheezy. She received albuterol nebs. Anterior Chest Pain Score (Numeric/FACES): 7 - Related Data Allergies/Adverse Reactions: Allergies Allergy/AdvReac Type Severity Reaction Status Date / Time methylprednisolone Allergy Itching Verified 11/27/19 02:51 Home Medications: Home Meds Albuterol Sulfate [Proair Hfa] 2 puff IH ASDIRECTED PRN 08/09/19 [History] Fluticasone Propion/Salmeterol [Wixela 250-50 Inhub] 1 puff INH BID 08/09/19 [History] methocarbamoL [Methocarbamol] 500 mg PO DAILY PRN 11/27/19 [History] Past Medical History HEENT History: Reports: None Cardiovascular History: Reports: SOB on Exertion Respiratory History: Reports: Asthma, COPD, SOB Gastrointestinal History: Reports: GERD Musculoskeletal History: Reports: Back Pain, Chronic Other Musculoskeletal History: hx. fracture 5th vertabrea Psychiatric History: Reports: Addiction - Infectious Disease History Infectious Disease History: Reports: None - Past Surgical History Other HEENT Surgeries/Procedures: fingernail caught in right eye back in 4 or 5th grade. Wore a patch and put dye in. Cardiovascular Surgical History: Reports: None Respiratory Surgical History: Reports: None GI Surgical History: Reports: None Musculoskeletal Surgical History: Reports: None Social & Family History - Family History Family Medical History: Noncontributory - Tobacco Use Tobacco Use Status *Q: Current Some Day Tobacco User Years of Tobacco use: 10 Packs/Tins Daily: 0.2 Used Tobacco, but Quit: No Second Hand Smoke Exposure: No - Caffeine Use Caffeine Use: Reports: Coffee, Soda - Recreational Drug Use Recreational Drug Use: No - Living Situation & Occupation Living situation: Reports: with Family H&P Review of Systems - Review of Systems: Review Of Systems: See Below General: Reports: No Symptoms HEENT: Reports: No Symptoms Pulmonary: Reports: Shortness of Breath, Cough, Sputum Cardiovascular: Reports: No Symptoms Gastrointestinal: Reports: No Symptoms Genitourinary: Reports: No Symptoms Musculoskeletal: Reports: No Symptoms Skin: Reports: No Symptoms Psychiatric: Reports: No Symptoms Neurological: Reports: No Symptoms Hematologic/Lymphatic: Reports: No Symptoms Immunologic: Reports: No Symptoms Exam - Exam Exam: See Below - Vital Signs Vital Signs: Last Vital Signs Temp 98.8 F 11/27/19 02:27 Pulse 112 H 11/27/19 02:27 Resp 20 11/27/19 02:27 BP 154/98 H 11/27/19 02:27 Pulse Ox 86 L 11/27/19 02:27 Weight: 139 lb 6.4 oz - Exam Quality Assessment: Supplemental Oxygen General: Alert, Oriented, 4 HEENT: PERRLA, Hearing Intact, Mucosa Moist & [place], Nares Patent, Normal Nasal Septum, Posterior Pharynx Clear, Conjunctiva Clear, EOMI, EACs Clear, TMs Clear Neck: Supple, Trachea Midline, 2 Lungs: Clear to Auscultation, Normal Respiratory Effort Cardiovascular: Regular Rate, Regular Rhythm GI/Abdominal Exam: Normal Bowel Sounds, Soft, Non-Tender, No Organomegaly, No Distention, No Abnormal Bruit, No Mass, Pelvis Stable Back Exam: Normal Inspection, Full Range of Motion, NT Extremities: Normal Inspection, Normal Range of Motion, Non-Tender, No Pedal Edema, Normal Capillary Refill Skin: Warm, Dry, Intact Neurological: Cranial Nerves Intact, Reflexes Equal Bilateral Neuro Extensive - Mental Status: Alert, Oriented x3, Normal Mood/Affect, Normal Cognition Neuro Extensive - Motor, Sensory, Reflexes: CN II-XII Intact, Normal Gait, Normal Reflexes Psychiatric: Alert, Normal Affect, Normal Mood - Patient Data Lab Results Last 24 hrs: Laboratory Results - last 24 hr 11/27/19 11/27/19 11/27/19 Range/Units 00:05 00:09 00:09 WBC 10.3 H (5.0-10.0) 10^3/uL RBC 5.10 (4.6-6.2) 10^6/uL Hgb 15.4 (14.0-18.0) g/dL Hct 44.3 (40.0-54.0) % MCV 86.9 (80-100) fL MCH 30.2 (27.0-34.0) pg MCHC 34.8 (33.0-35.0) g/dL Plt Count 404 (150-450) 10^3/uL Neut % (Auto) 43.3 (42.2-75.2) % Lymph % (Auto) 27.9 (20.5-50.1) % [place] % (Auto) 7.2 (2-8) % Eos % (Auto) 21.2 H (1.0-3.0) % Baso % (Auto) 0.4 (0.0-1.0) % Add Manual Diff Yes Neutrophils % (Manual) 44 (42-75) % Lymphocytes % (Manual) 31 (20-50) % Monocytes % (Manual) 5 (2-8) % Eosinophils % (Manual) 20 H (1-3) % D-Dimer, Quantitative (0-400) ng/mL Sodium 136 (136-145) mmol/L Potassium 4.1 (3.5-5.1) mmol/L Chloride 101 (98-107) mmol/L Carbon Dioxide 24 (21-32) mmol/L Anion Gap 15.1 H (7-13) mEq/L BUN 8 (7-18) mg/dL Creatinine 0.99 (0.70-1.30) mg/dL Est Cr Clr Drug Dosing 94.82 mL/min Estimated GFR (MDRD) > 60 BUN/Creatinine Ratio 8.1 (No establ ref range) Glucose 104 H (74-99) mg/dL Lactic Acid (0.4-2.0) mmol/L Calcium 8.9 (8.5-10.1) mg/dL Total Bilirubin 0.3 (0.2-1.0) mg/dL AST 25 (15-37) U/L ALT 42 (16-63) U/L Alkaline Phosphatase 113 (46-116) U/L Troponin I < 0.017 (0.000-0.056) ng/mL Total Protein 8.1 (6.4-8.2) g/dL Albumin 4.2 (3.4-5.0) g/dL Globulin 3.9 Albumin/Globulin Ratio 1.1 SARS CoV-2 RNA Rapid DARIEL Negative (NEGATIVE) 11/27/19 11/27/19 Range/Units 00:09 00:09 WBC (5.0-10.0) 10^3/uL RBC (4.6-6.2) 10^6/uL Hgb (14.0-18.0) g/dL Hct (40.0-54.0) % MCV (80-100) fL MCH (27.0-34.0) pg MCHC (33.0-35.0) g/dL Plt Count (150-450) 10^3/uL Neut % (Auto) (42.2-75.2) % Lymph % (Auto) (20.5-50.1) % [place] % (Auto) (2-8) % Eos % (Auto) (1.0-3.0) % Baso % (Auto) (0.0-1.0) % Add Manual Diff Neutrophils % (Manual) (42-75) % Lymphocytes % (Manual) (20-50) % Monocytes % (Manual) (2-8) % Eosinophils % (Manual) (1-3) % D-Dimer, Quantitative < 100 (0-400) ng/mL Sodium (136-145) mmol/L Potassium (3.5-5.1) mmol/L Chloride (98-107) mmol/L Carbon Dioxide (21-32) mmol/L Anion Gap (7-13) mEq/L BUN (7-18) mg/dL Creatinine (0.70-1.30) mg/dL Est Cr Clr Drug Dosing mL/min Estimated GFR (MDRD) BUN/Creatinine Ratio (No establ ref range) Glucose (74-99) mg/dL Lactic Acid 1.7 (0.4-2.0) mmol/L Calcium (8.5-10.1) mg/dL Total Bilirubin (0.2-1.0) mg/dL AST (15-37) U/L ALT (16-63) U/L Alkaline Phosphatase (46-116) U/L Troponin I (0.000-0.056) ng/mL Total Protein (6.4-8.2) g/dL Albumin (3.4-5.0) g/dL Globulin Albumin/Globulin Ratio SARS CoV-2 RNA Rapid DARIEL (NEGATIVE) Result Diagrams: 11/27/19 00:09 11/27/19 00:09 Emmanuel Results Last 24 hrs: Microbiology 11/27/19 00:09 Anaerobic Blood Culture - Final Blood - Venous - Iv Start 11/27/19 00:18 Influenza Type A Antigen Screen - Final Nasal, Unspecified NEGATIVE INFLUENZA A VIRUS AG REFERENCE RANGE: NEGATIVE Influenza Type B Antigen Screen - Final NEGATIVE INFLUENZA B VIRUS AG REFERENCE RANGE: NEGATIVE Problem List Initiated/Reviewed/Updated: Yes Orders Last 24hrs: Active Orders 24 hr Category Date Time Status Admission Diagnosis [ADT] Stat ADT 11/27/19 02:07 Ordered Admission Status [Patient Status] [ADT] Routine ADT 11/27/19 02:07 Active Antiembolic Devices [RC] PER UNIT ROUTINE Care 11/27/19 03:12 Ordered Oxygen Therapy [RC] PRN Care 11/27/19 03:10 Ordered RT Aerosol Therapy [RC] ASDIRECTED Care 11/27/19 03:12 Ordered Up ad Dasha [RC] ASDIRECTED Care 11/27/19 03:10 Ordered VTE/DVT Education [RC] PER UNIT ROUTINE Care 11/27/19 03:10 Ordered Vital Signs [RC] Q4H Care 11/27/19 03:10 Ordered Regular Diet [DIET] Diet 11/27/19 Breakfast Ordered CULTURE BLOOD [BC] Stat Lab 11/26/19 23:46 Results Acetaminophen [TylenoL] Med 11/27/19 03:10 Ordered 650 mg PO Q4H PRN Albuterol [Proventil Neb Soln] Med 11/27/19 03:10 Ordered 2.5 mg NEB Q2H PRN Albuterol/Ipratropium [DuoNeb 3.0-0.5 MG/3 ML] Med 11/27/19 07:00 Ordered 3 ml NEB Q6HRRT Enoxaparin [Lovenox] Med 11/27/19 09:00 Ordered 30 mg SUBCUT DAILY Nicotine [Habitrol] Med 11/27/19 09:00 Ordered 14 mg TRDERM DAILY Ondansetron [Zofran ODT] Med 11/27/19 03:10 Ordered 4 mg PO Q4H PRN Ondansetron [Zofran] Med 11/27/19 03:10 Ordered 4 mg IVPUSH Q4H PRN methocarbamoL [Methocarbamol] Med 11/27/19 03:13 Ordered 500 mg PO DAILY PRN predniSONE Med 11/27/19 08:00 Ordered 40 mg PO WITHBREAKFAST Antiembolic Hose [OM.PC] Per Unit Routine Oth 11/27/19 03:11 Ordered Isolation [COMM] Routine Oth 11/26/19 23:48 Active Resuscitation Status Routine Resus Stat 11/27/19 03:10 Ordered Medication Orders Acetaminophen (Tylenol) 650 mg PO Q4H PRN PRN Reason: Pain (Mild 1-3)/fever Albuterol (Proventil Neb Soln) 2.5 mg NEB Q2H PRN PRN Reason: shortness of breath/wheezing Albuterol/Ipratropium (Duoneb 3.0-0.5 Mg/3 Ml) 3 ml NEB Q6HRRT [facility] Enoxaparin Sodium (Lovenox) 30 mg SUBCUT DAILY [facility] Nicotine (Habitrol) 14 mg TRDERM DAILY [facility] Non-Formulary Medication (Methocarbamol [Methocarbamol]) 500 mg PO DAILY PRN PRN Reason: Other Ondansetron HCl (Zofran) 4 mg IVPUSH Q4H PRN PRN Reason: Nausea/Vomiting Ondansetron HCl (Zofran Odt) 4 mg PO Q4H PRN PRN Reason: nausea, able to take PO Prednisone (Prednisone) 40 mg PO WITHBREAKFAST HEIDI Assessment/Plan Comment:: Acute exacerbation of asthma Acute hypoxic respiratory failure Start prednisone 40 mg daily x5 days Scheduled duo nebs 4 times daily As needed albuterol Oxygen supplementation as needed Tobacco use disorder Counseled on tobacco cessation As needed nicotine patch Leukocytosis Likely reactive Monitor
[2019-11-27] MEDS: Albuterol/Ipratropium 3.0-0.5 MG/3 ML Neb Soln NEB SCH ×3 (07:57→17:44)
[2019-11-27] MEDS: predniSONE 20 MG Tab PO SCH (08:43)
[2019-11-27] MEDS: Nicotine 14 MG/24 Hr Patch TRDERM SCH (08:44)
[2019-11-27] MEDS: Enoxaparin 40 MG/0.4 ML Syringe SUBCUT SCH (08:45)
[2019-11-27] MEDS ORDERED: LORazepam 2 MG/ML SDV IVPUSH ONE (13:59)
[2019-11-27] MEDS: Albuterol 0.083% 2.5 MG/3 ML Neb Soln NEB PRN ×2 (16:01→23:43)
[2019-11-28] MEDS: Albuterol/Ipratropium 3.0-0.5 MG/3 ML Neb Soln NEB SCH ×4 (01:18→13:38)
[2019-11-28] MEDS: predniSONE 20 MG Tab PO SCH (08:57)
[2019-11-28] MEDS: Enoxaparin 40 MG/0.4 ML Syringe SUBCUT SCH (08:58)
[2019-11-28] MEDS: Nicotine 14 MG/24 Hr Patch TRDERM SCH (08:58)
[2019-11-28] MEDS: Albuterol 0.083% 2.5 MG/3 ML Neb Soln NEB PRN (09:37)
[2019-11-28 10:27] LABS: ANION GAP 11.6 mEq/L (7-13); CHLORIDE,CL 100 mmol/L (98-107); SODIUM,NA 138 mmol/L (136-145)
--- NOTE | 2019-11-28 13:34 | PCM.DCSUM1 ---
Discharge Summary - Hospital Course Free Text/Narrative:: Patient is a 39-year-old male with a history of asthma and tobacco use disorder who presented with complaints of cough and shortness of breath. He required 2 L of oxygen by nasal cannula. Labs significant for mild leukocytosis of 10.3. Covid test was negative. Chest x-ray showed hyperinflated lungs but no infiltrates. Patient was found to be wheezy and had productive cough. He was treated with DuoNebs and steroids for acute asthma exacerbation. He was discharged with a Z-Dustin for probable bronchitis given duration of his symptoms and history of exposure to his significant other with similar symptoms. Respiratory status improved prior to discharge. Diagnosis: Stroke: No - Discharge Data Discharge Date: 11/28/19 Discharge Disposition: Home, Self-Care 01 Condition: Good - Referral to Home Health Primary Care Physician: [facility] - Discharge Plan *PRESCRIPTION DRUG MONITORING PROGRAM REVIEWED*: Not Applicable *COPY OF PRESCRIPTION DRUG MONITORING REPORT IN PATIENT ABDIAZIZ: Not Applicable Prescriptions/Med Rec: Azithromycin 250 mg PO DAILY #4 tablet Azithromycin 500 mg PO ONETIME 1 Days #1 tablet predniSONE 40 mg PO WITHBREAKFAST #3 tablet Home Medications: Home Meds Albuterol Sulfate [Proair Hfa] 2 puff IH ASDIRECTED PRN 08/09/19 [History] Fluticasone Propion/Salmeterol [Wixela 250-50 Inhub] 1 puff INH BID 08/09/19 [History] methocarbamoL [Methocarbamol] 500 mg PO DAILY PRN 11/27/19 [History] Azithromycin 250 mg PO DAILY #4 tablet 11/28/19 [Rx] Azithromycin 500 mg PO ONETIME 1 Days #1 tablet 11/28/19 [Rx] predniSONE 40 mg PO WITHBREAKFAST #3 tablet 11/28/19 [Rx] Oxygen Therapy Mode: Room Air Forms: ED Department Discharge Referrals: [facility] [Ordering Only Provider] - - Discharge Summary/Plan Comment DC Time >30 min.: Yes - General Info Date of Service: 11/28/19 Admission Dx/Problem (Free Text: Admission Diagnosis/Problem Admission Diagnosis/Problem Asthma exacerbation Subjective Update: Patient seen and examined today. He says he is feeling better. He still requiring oxygen even with activity. He still coughing with greenish sputum. Functional Status: Reports: Pain Controlled - Review of Systems General: Reports: No Symptoms HEENT: Reports: No Symptoms Pulmonary: Reports: Cough, Sputum Cardiovascular: Reports: No Symptoms Gastrointestinal: Reports: No Symptoms Genitourinary: Reports: No Symptoms Musculoskeletal: Reports: No Symptoms Skin: Reports: No Symptoms Neurological: Reports: No Symptoms Psychiatric: Reports: No Symptoms - Patient Data Vitals - Most Recent: Last Vital Signs Temp 98.8 F 11/28/19 07:26 Pulse 101 H 11/28/19 09:27 Resp 20 11/28/19 07:26 BP 124/79 11/28/19 07:26 Pulse Ox 92 L 11/28/19 07:26 Weight - Most Recent: 139 lb 6.4 oz I&O - Last 24 hours: Intake & Output 11/27/19 11/28/19 11/28/19 22:59 06:59 14:59 Intake Total 585 500 760 Balance 585 500 760 Lab Results - Last 24 hrs: Laboratory Results - last 24 hr 11/28/19 11/28/19 Range/Units 09:50 09:50 WBC 10.0 (5.0-10.0) 10^3/uL RBC 4.91 (4.6-6.2) 10^6/uL Hgb 14.6 (14.0-18.0) g/dL Hct 43.1 (40.0-54.0) % MCV 87.8 (80-100) fL MCH 29.7 (27.0-34.0) pg MCHC 33.9 (33.0-35.0) g/dL Plt Count 381 (150-450) 10^3/uL Sodium 138 (136-145) mmol/L Potassium 3.6 (3.5-5.1) mmol/L Chloride 100 (98-107) mmol/L Carbon Dioxide 30 (21-32) mmol/L Anion Gap 11.6 (7-13) mEq/L BUN 9 (7-18) mg/dL Creatinine 1.01 (0.70-1.30) mg/dL Est Cr Clr Drug Dosing 86.95 mL/min Estimated GFR (MDRD) > 60 Glucose 107 H (74-99) mg/dL Calcium 9.2 (8.5-10.1) mg/dL DIMITRI Results - Last 24 hrs: Microbiology 11/27/19 00:09 Aerobic Blood Culture - Preliminary Blood - Venous - Iv Start NO GROWTH AFTER 1 DAY Anaerobic Blood Culture - Final Med Orders - Current: Current Medications Acetaminophen (Tylenol) 650 mg PO Q4H PRN PRN Reason: Pain (Mild 1-3)/fever Albuterol (Proventil Neb Soln) 2.5 mg NEB Q2H PRN PRN Reason: shortness of breath/wheezing Last Admin: 11/28/19 09:37 Dose: 2.5 mg Documented by: Albuterol/Ipratropium (Duoneb 3.0-0.5 Mg/3 Ml) 3 ml NEB Q6HRRT [facility] Last Admin: 11/28/19 06:25 Dose: Not Given Documented by: Enoxaparin Sodium (Lovenox) 40 mg SUBCUT DAILY [facility] Last Admin: 11/28/19 08:58 Dose: Not Given Documented by: Miscellaneous Information (Check Patch) 1 ea TRDERM BEDTIME [facility] Nicotine (Habitrol) 14 mg TRDERM DAILY [facility] Last Admin: 11/28/19 08:58 Dose: Not Given Documented by: Non-Formulary Medication (Methocarbamol [Methocarbamol]) 500 mg PO DAILY PRN PRN Reason: Other Ondansetron HCl (Zofran) 4 mg IVPUSH Q4H PRN PRN Reason: Nausea/Vomiting Ondansetron HCl (Zofran Odt) 4 mg PO Q4H PRN PRN Reason: nausea, able to take PO Prednisone (Prednisone) 40 mg PO WITHBREAKFAST [facility] Last Admin: 11/28/19 08:57 Dose: 40 mg Documented by: Discontinued Medications Dexamethasone (Dexamethasone) 6 mg IVPUSH ONETIME ONE Stop: 11/26/19 23:54 Last Admin: 11/27/19 00:05 Dose: 6 mg Documented by: Dexamethasone (Dexamethasone) Confirm Administered Dose 8 mg .ROUTE .STK-MED ONE Stop: 11/26/19 23:56 Last Admin: 11/27/19 00:32 Dose: Not Given Documented by: Lorazepam (Ativan) 0.5 mg IVPUSH ONETIME ONE Stop: 11/27/19 14:00 Last Admin: 11/27/19 14:18 Dose: 0.5 mg Documented by: - Exam General: Reports: Alert, Oriented HEENT: Reports: Pupils Equal, Pupils Reactive, EOMI, Mucous Membr. Moist/[place] Neck: Reports: Supple Lungs: Reports: Clear to Auscultation, Normal Respiratory Effort Cardiovascular: Reports: Regular Rate, Regular Rhythm GI/Abdominal Exam: Normal Bowel Sounds, Soft, Non-Tender, No Organomegaly, No Distention, No Abnormal Bruit, No Mass, Pelvis Stable Back Exam: Reports: Normal Inspection, Full Range of Motion Extremities: Normal Inspection, Normal Range of Motion, Non-Tender, No Pedal Edema, Normal Capillary Refill Skin: Reports: Warm, Dry, Intact Neurological: Reports: No New Focal Deficit Psy/Mental Status: Reports: Alert
[2019-11-28] MEDS ORDERED: CHECK NICOTINE TRDERM SCH (21:00)
== END 2019-11-28 14:45 | disposition home or self-care (01) ==
LOC: DL.ED 23:48 → DL.MS 11-27 02:07
PROVIDERS: ADMIT Internal Medicine; ATTEND Internal Medicine
DX: J45.901 Unspecified asthma with (acute) exacerbation (principal); J96.01 Acute respiratory failure with hypoxia; G89.29 Other chronic pain; F17.210 Nicotine dependence, cigarettes, uncomplicated; D72.829 Elevated white blood cell count, unspecified; Z20.828 Contact with and (suspected) exposure to other viral communicable diseases; Z88.8 Allergy status to other drugs, medicaments and biological substances; Z79.899 Other long term (current) drug therapy
CPT/HCPCS: 36415; 71045; 80048; 80053; 83605; 84484; 85025; 85027; 85379; 87040; 87635; 87804; 90471; 93005; 94010; 94640; 94667; 96374; 99285; J1100; J2060; J7512; 96375; 99283; G0008; G0378; J7613-GY; J7620-GY; U0002

== ENCOUNTER 2022-09-02 11:10 | Observation (INO) | payer MEDICAID ==
[2022-09-02] MEDS ORDERED: Albuterol/Ipratropium 3.0-0.5 MG/3 ML Neb Soln NEB ONE (11:30)
[2022-09-02] MEDS ORDERED: Dexamethasone 4 MG/ML SDV IVPUSH ONE (11:31)
[2022-09-02] MEDS ORDERED: Albuterol/Ipratropium 3.0-0.5 MG/3 ML Neb Soln ONE (11:35)
[2022-09-02] MEDS ORDERED: Magnesium Sulfate/Water 2 GM in Premix Bag 1 BAG IV ONE ×2 (11:50→12:00)
[2022-09-02 12:00] LABS: BASOPHILS PERCENT AUTO 0.2 % (0.0-1.0); EOSINOPHILS PERCENT AUTO 14.1 % (1.0-3.0); LYMPHOCYTES PERCENT AUTO 13.5 % (20.5-50.1); MEAN CORPUSCULAR HEMOGLOBIN 29.6 pg (27.0-34.0); MEAN CORPUSCULAR HGB CONC 34.1 g/dL (33.0-35.0); MEAN CORPUSCULAR VOLUME 86.7 fL (80-100); MONOCYTES PERCENT AUTO 7.2 % (2-8); PLATELET COUNT,PLT 393 10^3/uL (150-450); RED BLOOD CELL COUNT 4.73 10^6/uL (4.6-6.2); WHITE BLOOD CELL COUNT,WBC 9.2 10^3/uL (5.0-10.0)
[2022-09-02] MEDS ORDERED: Magnesium Sulfate/Water 100 ML IV ONE (12:00)
[2022-09-02 12:20] LABS: A/G RATIO 1.1; ALANINE AMINOTRANSFERASE,ALT 24 U/L (16-63); ALKALINE PHOSPHATASE 94 U/L (46-116); ANION GAP 14.4 mEq/L (7-13); ASPARTATE AMNIOTRANSFERASE,AST 15 U/L (15-37); BILIRUBIN TOTAL 0.3 mg/dL (0.2-1.0); BLOOD UREA NITROGEN,BUN 11 mg/dL (7-18); BUN/CREATININE RATIO 11.3 (No establ ref range); CALCIUM 9.2 mg/dL (8.5-10.1); CARBON DIOXIDE,CO2 28 mmol/L (21-32); CHLORIDE,CL 104 mmol/L (98-107); CREATININE 0.97 mg/dL (0.70-1.30); EST CRCL DRUG DOSING (CG) 86.94 mL/min; GLUCOSE RANDOM 123 mg/dL (70-99); POTASSIUM,K 4.4 mmol/L (3.5-5.1); PROTEIN TOTAL,TP 7.7 g/dL (6.4-8.2); SODIUM,NA 142 mmol/L (136-145)
[2022-09-02 12:21] LABS: C-REACTIVE PROTEIN < 0.2 mg/dL (0.0-0.9); ESTIMATED GFR 99 mL/min (>=60)
[2022-09-02 12:23] LABS: LACTIC ACID 0.9 mmol/L (0.4-2.0)
[2022-09-02] MEDS ORDERED: Ondansetron 4 MG/2 ML SDV IVPUSH PRN (13:33)
[2022-09-02] MEDS ORDERED: Sennosides/Docusate Sodium 50-8.6 MG Tab PO PRN (13:33)
[2022-09-02] MEDS ORDERED: Polyethylene Glycol 3350 Powder 17 GM Packet PO PRN (13:33)
[2022-09-02] MEDS ORDERED: Acetaminophen 325 MG Tab PO PRN (13:33)
[2022-09-02] MEDS ORDERED: Zolpidem 5 MG Tab PO PRN (13:33)
[2022-09-02] MEDS ORDERED: Magnesium Hydroxide 400 MG/5 ML Susp 30 ML Cup PO PRN (13:33)
[2022-09-02] MEDS ORDERED: Glucagon,Human Recombinant 1 MG Vial IM PRN (13:39)
[2022-09-02] MEDS ORDERED: 50% Dextrose in Water 50 ML Syringe IVPUSH PRN (13:39)
[2022-09-02] MEDS ORDERED: Azithromycin 500 MG in Sodium Chloride 0.9% 250 ML IV ONE (13:41)
[2022-09-02] MEDS ORDERED: guaiFENesin/Dextromethorphan 100-10 MG/5 ML Soln 5 ML Cup PO PRN (13:41)
[2022-09-02] MEDS ORDERED: guaiFENesin 600 MG Tab.ER PO ONE (13:42)
[2022-09-02] MEDS ORDERED: Tiotropium Bromide 4 GM Inhalation Spray (2.5mcg/1 dose; 10 doses) INH ONE (13:44)
[2022-09-02] MEDS ORDERED: traMADol 50 MG Tab PO PRN (13:45)
[2022-09-02] MEDS ORDERED: hydrALAZINE 20 MG/ML SDV IVPUSH PRN (13:46)
[2022-09-02] MEDS ORDERED: Metoprolol Tartrate 5 MG/5 ML SDV IVPUSH PRN (13:46)
[2022-09-02] MEDS: Albuterol/Ipratropium 3.0-0.5 MG/3 ML Neb Soln NEB PRN ×2 (14:18→17:04)
[2022-09-02] MEDS: Insulin Lispro 100 Units/ML 3 ML Vial SUBCUT SCH (17:02)
[2022-09-02] MEDS: Formoterol/Mometasone 200-5 MCG 8.8 GM Inhaler IH SCH (17:04)
[2022-09-02] MEDS: Magnesium Oxide 400 MG Tab PO SCH (17:20)
[2022-09-02] MEDS: Dexamethasone 4 MG/ML SDV IVPUSH SCH ×3 (17:20→23:34)
[2022-09-02] MEDS ORDERED: Formoterol/Mometasone 200-5 MCG 8.8 GM Inhaler IH SCH (18:00)
[2022-09-02] MEDS ORDERED: Ziprasidone Mesylate 20 MG Vial IM PRN (18:04)
[2022-09-02] MEDS ORDERED: Water For Injection, Sterile 10 ML SDV PRN (18:14)
[2022-09-02] MEDS ORDERED: Loratadine 10 MG Tab PO SCH (21:00)
[2022-09-02] MEDS: HYDROmorphone 0.5 MG/0.5 ML Syringe IVPUSH PRN (22:04)
[2022-09-02] MEDS: Famotidine 20 MG Tab PO SCH (22:05)
[2022-09-02] MEDS: guaiFENesin 600 MG Tab.ER PO SCH (22:05)
[2022-09-03] MEDS: Albuterol/Ipratropium 3.0-0.5 MG/3 ML Neb Soln NEB PRN ×5 (04:28→17:26)
[2022-09-03] MEDS: Dexamethasone 4 MG/ML SDV IVPUSH SCH ×3 (05:49→17:19)
[2022-09-03] MEDS: HYDROmorphone 0.5 MG/0.5 ML Syringe IVPUSH PRN (05:50)
[2022-09-03] MEDS ORDERED: Tiotropium Bromide 4 GM Inhalation Spray (2.5mcg/1 dose; 10 doses) INH SCH ×2 (06:00→09:00)
[2022-09-03] MEDS: Formoterol/Mometasone 200-5 MCG 8.8 GM Inhaler IH SCH ×2 (06:05→17:22)
[2022-09-03 06:32] LABS: HEMATOCRIT 41.5 % (40.0-54.0); HEMOGLOBIN 14.2 g/dL (14.0-18.0); LYMPHOCYTES PERCENT AUTO 7.8 % (20.5-50.1); MEAN CORPUSCULAR HEMOGLOBIN 29.8 pg (27.0-34.0); MEAN CORPUSCULAR HGB CONC 34.2 g/dL (33.0-35.0); MEAN CORPUSCULAR VOLUME 87.2 fL (80-100); MONOCYTES PERCENT AUTO 4.5 % (2-8); NEUTROPHILS PERCENT AUTO 87.7 % (42.2-75.2); PLATELET COUNT,PLT 407 10^3/uL (150-450); RED BLOOD CELL COUNT 4.76 10^6/uL (4.6-6.2); WHITE BLOOD CELL COUNT,WBC 7.8 10^3/uL (5.0-10.0)
[2022-09-03 06:51] LABS: ALANINE AMINOTRANSFERASE,ALT 26 U/L (16-63); ALKALINE PHOSPHATASE 87 U/L (46-116); ANION GAP 15.1 mEq/L (7-13); ASPARTATE AMNIOTRANSFERASE,AST 16 U/L (15-37); BILIRUBIN TOTAL 0.3 mg/dL (0.2-1.0); BLOOD UREA NITROGEN,BUN 10 mg/dL (7-18); BUN/CREATININE RATIO 13.7 (No establ ref range); CALCIUM 9.1 mg/dL (8.5-10.1); CARBON DIOXIDE,CO2 27 mmol/L (21-32); CHLORIDE,CL 103 mmol/L (98-107); CREATININE 0.73 mg/dL (0.70-1.30); EST CRCL DRUG DOSING (CG) 114.35 mL/min; GLUCOSE RANDOM 133 mg/dL (70-99); MAGNESIUM 2.4 mg/dL (1.8-2.4); POTASSIUM,K 4.1 mmol/L (3.5-5.1); SODIUM,NA 141 mmol/L (136-145)
[2022-09-03 07:02] LABS: C-REACTIVE PROTEIN < 0.2 mg/dL (0.0-0.9); ESTIMATED GFR 116 mL/min (>=60)
[2022-09-03] MEDS: Insulin Lispro 100 Units/ML 3 ML Vial SUBCUT SCH ×3 (08:10→17:06)
[2022-09-03] MEDS: Famotidine 20 MG Tab PO SCH (08:54)
[2022-09-03] MEDS: guaiFENesin 600 MG Tab.ER PO SCH (08:54)
[2022-09-03] MEDS: Magnesium Oxide 400 MG Tab PO SCH ×2 (08:55→17:20)
[2022-09-03] MEDS ORDERED: Nicotine 21 MG/24 Hr Patch TRDERM SCH (09:00)
[2022-09-03] MEDS ORDERED: Azithromycin 500 MG in Sodium Chloride 0.9% 250 ML IV SCH (09:00)
[2022-09-03] MEDS ORDERED: Acetaminophen/Butalbital/Caffeine 325-50-40 MG Tab PO PRN (09:28)
== END 2022-09-03 18:25 | disposition home or self-care (01) ==
LOC: DL.ED 11:10 → DL.MS 13:10 → UNDOADMOB 13:10 → UNDODISOB 09-03 18:25
PROVIDERS: ADMIT Internal Medicine; ATTEND Internal Medicine
DX: J45.41 Moderate persistent asthma with (acute) exacerbation (principal); R00.0 Tachycardia, unspecified; R73.9 Hyperglycemia, unspecified; F17.210 Nicotine dependence, cigarettes, uncomplicated; K21.9 Gastro-esophageal reflux disease without esophagitis; Z88.8 Allergy status to other drugs, medicaments and biological substances; Z79.899 Other long term (current) drug therapy
CPT/HCPCS: 36415; 71045; 80053; 82947; 83605; 83735; 85025; 85379; 86140; 87070; 87205; 94010; 94060; 94640; 94664; 94667; 94668; 94762; 96365; 96375; 99223; 99238; 99284; 99285-25; A9270-GY; J0456; J1100; J1170; J3475; J7050; J7620-GY; U0002

== ENCOUNTER 2022-12-09 19:12 | Emergency (ER) | payer MEDICAID ==
[2022-12-09] MEDS ORDERED: Dexamethasone 4 MG Tab PO ONE (19:13)
[2022-12-09] MEDS ORDERED: Magnesium Sulfate/Water 2 GM in Premix Bag 1 BAG IV ONE ×4 (19:18)
[2022-12-09] MEDS ORDERED: Sodium Chloride 0.9% 10 ML Syringe FLUSH PRN (19:18)
[2022-12-09] MEDS ORDERED: Dexamethasone 4 MG/ML SDV IVPUSH ONE (19:18)
[2022-12-09] MEDS ORDERED: Albuterol/Ipratropium 3.0-0.5 MG/3 ML Neb Soln NEB ONE (20:19)
[2022-12-09 20:27] LABS: HEMOGLOBIN 15.1 g/dL (14.0-18.0); MEAN CORPUSCULAR HEMOGLOBIN 29.9 pg (27.0-34.0); MEAN CORPUSCULAR HGB CONC 34.3 g/dL (33.0-35.0); MEAN CORPUSCULAR VOLUME 87.1 fL (80-100); PLATELET COUNT,PLT 452 10^3/uL (150-450); RED BLOOD CELL COUNT 5.05 10^6/uL (4.6-6.2); WHITE BLOOD CELL COUNT,WBC 9.1 10^3/uL (5.0-10.0)
[2022-12-09 20:31] LABS: BASOPHILS PERCENT AUTO 0.2 % (0.0-1.0); EOSINOPHILS PERCENT AUTO 13.8 % (1.0-3.0); LYMPHOCYTES PERCENT AUTO 19.1 % (20.5-50.1); MONOCYTES PERCENT AUTO 7.5 % (2-8); NEUTROPHILS PERCENT AUTO 59.4 % (42.2-75.2)
[2022-12-09 20:35] LABS: A/G RATIO 0.9; ALBUMIN 3.8 g/dL (3.4-5.0); ANION GAP 13.8 mEq/L (7-13); BILIRUBIN TOTAL 0.3 mg/dL (0.2-1.0); BUN/CREATININE RATIO 4.9 (No establ ref range); CALCIUM 8.9 mg/dL (8.5-10.1); CREATININE 0.81 mg/dL (0.70-1.30); EST CRCL DRUG DOSING (CG) 105.62 mL/min; POTASSIUM,K 3.8 mmol/L (3.5-5.1); PROTEIN TOTAL,TP 8.1 g/dL (6.4-8.2)
[2022-12-09 20:41] LABS: BAND PERCENT MAN 1 %; EOSINOPHILS PERCENT MAN 10 % (1-3); LYMPHOCYTES PERCENT MAN 21 % (20-50); MONOCYTES PERCENT MAN 6 % (2-8); SEG NEUTROPHILS PERCENT MAN 62 % (42-75)
[2022-12-09] MEDS ORDERED: Dexamethasone 2 MG Tab ONE (22:12)
== END 2022-12-09 22:20 | disposition home or self-care (01) ==
LOC: DL.ED 19:12
DX: J45.901 Unspecified asthma with (acute) exacerbation (principal); K21.9 Gastro-esophageal reflux disease without esophagitis; Z79.899 Other long term (current) drug therapy; Z88.8 Allergy status to other drugs, medicaments and biological substances
CPT/HCPCS: 36415; 71045; 80053; 85025; 96365; 96375; 99284; 99285-25; J1100; J3475; J3490; J7620-GY; J8540

== ENCOUNTER 2023-08-04 16:51 | Observation (INO) | payer MEDICAID ==
[2023-08-04] MEDS: Albuterol/Ipratropium 3.0-0.5 MG/3 ML Neb Soln NEB ONE (17:13)
[2023-08-04 17:17] LABS: HEMATOCRIT 44.6 % (40.0-54.0); HEMOGLOBIN 15.5 g/dL (14.0-18.0); MEAN CORPUSCULAR HEMOGLOBIN 30.8 pg (27.0-34.0); MEAN CORPUSCULAR HGB CONC 34.8 g/dL (33.0-35.0); MEAN CORPUSCULAR VOLUME 88.5 fL (80-100); PLATELET COUNT,PLT 375 10^3/uL (150-450); RED BLOOD CELL COUNT 5.04 10^6/uL (4.6-6.2)
[2023-08-04 17:19] LABS: BASOPHILS PERCENT AUTO 0.5 % (0.0-1.0); EOSINOPHILS PERCENT AUTO 12.2 % (1.0-3.0); LYMPHOCYTES PERCENT AUTO 19.2 % (20.5-50.1); MONOCYTES PERCENT AUTO 7.8 % (2-8); NEUTROPHILS PERCENT AUTO 60.3 % (42.2-75.2)
[2023-08-04] MEDS: methylPREDNISolone Sod Succ 125 MG in Sodium Chloride 0.9% 100 ML IV ONE (17:28)
[2023-08-04 17:33] LABS: EOSINOPHILS PERCENT MAN 10 % (1-3); LYMPHOCYTES PERCENT MAN 20 % (20-50); MONOCYTES PERCENT MAN 9 % (2-8); SEG NEUTROPHILS PERCENT MAN 61 % (42-75)
[2023-08-04] MEDS: methylPREDNISolone Sodium Succinate 125 MG/2 ML SDV IVPUSH ONE (17:33)
[2023-08-04 17:39] LABS: A/G RATIO 1.1; ALBUMIN 4.1 g/dL (3.4-5.0); ANION GAP 12.7 mEq/L (7-13); BILIRUBIN TOTAL 0.3 mg/dL (0.2-1.0); BUN/CREATININE RATIO 6.3 (No establ ref range); C-REACTIVE PROTEIN 0.63 ng/dL (<=0.50); CALCIUM 9.4 mg/dL (8.5-10.1); CREATININE 0.95 mg/dL (0.70-1.30); EST CRCL DRUG DOSING (CG) 89.13 mL/min; POTASSIUM,K 3.7 mmol/L (3.5-5.1); PROTEIN TOTAL,TP 7.9 g/dL (6.4-8.2)
[2023-08-04 17:46] LABS: LACTIC ACID 2.1 mmol/L (0.4-2.0)
[2023-08-04] MEDS: Sodium Chloride 0.9% 1,000 ML IV ONE (17:55)
[2023-08-04] MEDS ORDERED: Flumazenil 0.1 MG/ML 5 ML MDV IVPUSH PRN (18:00)
[2023-08-04] MEDS: Magnesium Sulfate/Water 2 GM in Premix Bag 1 BAG IV ONE (18:01)
[2023-08-04 18:07] LABS: APPEARANCE,URINE CLEAR (CLEAR); BILIRUBIN,URINE NEGATIVE (NEGATIVE); COLOR,URINE YELLOW (YELLOW); GLUCOSE,URINE NEGATIVE (NEGATIVE); KETONES,URINE NEGATIVE (NEGATIVE); LEUKOCYTE ESTERASE,URINE NEGATIVE (NEGATIVE); NITRITE,URINE NEGATIVE (NEGATIVE); OCCULT BLOOD,URINE NEGATIVE (NEGATIVE); PROTEIN,URINE NEGATIVE (NEGATIVE); UROBILINOGEN,URINE 0.2 mg/dL (0.2-1.0)
[2023-08-04] MEDS: LORazepam 2 MG/ML SDV IVPUSH ONE (18:07)
[2023-08-04 18:10] LABS: AMPHETAMINES,URINE NEGATIVE (NEGATIVE); BARBITURATES,URINE NEGATIVE (NEGATIVE); BENZODIAZEPINE,URINE NEGATIVE (NEGATIVE); MDMA (ECSTASY), URINE NEGATIVE (NEGATIVE); METHADONE,URINE NEGATIVE (NEGATIVE); METHAMPHETAMINES,URINE NEGATIVE (NEGATIVE); OPIATES,URINE NEGATIVE (NEGATIVE); OXYCODONE,URINE NEGATIVE (NEGATIVE); PHENCYCLIDINE,URINE NEGATIVE (NEGATIVE); TCA,URINE NEGATIVE (NEGATIVE)
[2023-08-04] MEDS ORDERED: Ondansetron 4 MG/2 ML SDV IVPUSH PRN (19:16)
[2023-08-04] MEDS ORDERED: Acetaminophen 325 MG Tab PO PRN (19:16)
[2023-08-04] MEDS ORDERED: Non-Formulary Medication 1 Each (Methocarbamol [Methocarbamol] 500 MG Tablet) PO PRN (19:33)
[2023-08-04] MEDS: Sodium Chloride 0.9% 1,000 ML IV SCH (21:00)
[2023-08-04] MEDS: Sodium Chloride 0.9% 10 ML Syringe FLUSH PRN (21:03)
[2023-08-04] MEDS: Enoxaparin 40 MG/0.4 ML Syringe SUBCUT SCH (21:05)
[2023-08-04] MEDS: Loratadine 10 MG Tab PO ONE (21:05)
[2023-08-04] MEDS: Albuterol/Ipratropium 3.0-0.5 MG/3 ML Neb Soln NEB PRN (21:05)
[2023-08-04] MEDS: methylPREDNISolone Sodium Succinate 40 MG/1 ML SDV IVPUSH SCH (21:07)
[2023-08-04] MEDS: Metoprolol Tartrate 5 MG/5 ML SDV IVPUSH PRN (21:30)
[2023-08-04] MEDS: Tiotropium Bromide 4 GM Inhalation Spray (2.5mcg/1 dose; 10 doses) INH SCH (22:04)
[2023-08-05] MEDS: Formoterol/Mometasone 200-5 MCG 8.8 GM Inhaler INH SCH (01:00)
[2023-08-05] MEDS: Famotidine 20 MG Tab PO SCH (01:37)
[2023-08-05 05:57] LABS: HEMATOCRIT 41.2 % (40.0-54.0); HEMOGLOBIN 14.1 g/dL (14.0-18.0); LYMPHOCYTES PERCENT AUTO 12.6 % (20.5-50.1); MEAN CORPUSCULAR HEMOGLOBIN 30.4 pg (27.0-34.0); MEAN CORPUSCULAR HGB CONC 34.2 g/dL (33.0-35.0); MEAN CORPUSCULAR VOLUME 88.8 fL (80-100); MONOCYTES PERCENT AUTO 1.3 % (2-8); NEUTROPHILS PERCENT AUTO 86.1 % (42.2-75.2); PLATELET COUNT,PLT 346 10^3/uL (150-450); RED BLOOD CELL COUNT 4.64 10^6/uL (4.6-6.2); WHITE BLOOD CELL COUNT,WBC 4.6 10^3/uL (5.0-10.0)
[2023-08-05 06:11] LABS: ANION GAP 14.5 mEq/L (7-13); CALCIUM 8.9 mg/dL (8.5-10.1); CREATININE 0.83 mg/dL (0.70-1.30); EST CRCL DRUG DOSING (CG) 100.34 mL/min; MAGNESIUM 1.9 mg/dL (1.8-2.4); POTASSIUM,K 4.5 mmol/L (3.5-5.1)
[2023-08-05] MEDS: oxyCODONE 5 MG Tab PO PRN (07:30)
[2023-08-05] MEDS: Magnesium Oxide 400 MG Tab PO SCH (07:30)
[2023-08-05] MEDS: Non-Formulary Medication 1 Each (Fluticasone Propion/Salmeterol [Wixela 250-50 Inhub] 1 EA INH SCH (08:04)
[2023-08-05] MEDS: Saccharomyces Boulardii (Probiotic) 250 MG Cap PO SCH (08:24)
[2023-08-05] MEDS: Nicotine 21 MG/24 Hr Patch TRDERM SCH (08:24)
== END 2023-08-05 12:30 | disposition home or self-care (01) ==
LOC: DL.ED 16:51 → DL.MS 19:16
PROVIDERS: ADMIT Internal Medicine; ATTEND Internal Medicine
DX: J45.41 Moderate persistent asthma with (acute) exacerbation (principal); J44.9 Chronic obstructive pulmonary disease, unspecified; K21.9 Gastro-esophageal reflux disease without esophagitis; Z88.8 Allergy status to other drugs, medicaments and biological substances; Z79.899 Other long term (current) drug therapy
CPT/HCPCS: 36415; 71045; 80048; 80053; 80305; 81003; 83605; 83735; 84484; 85025; 85379; 86140; 94640; 96365; 96375; 99285; A9270; J1650; J2060; J2919; J3475; J3490; J7030; 96372; 96376; 99284; G0378; J7620-GY

== ENCOUNTER 2023-10-26 17:31 | Emergency (ER) | payer MEDICAID ==
[2023-10-26 17:56] LABS: BASOPHILS PERCENT AUTO 0.3 % (0.0-1.0); EOSINOPHILS PERCENT AUTO 0.7 % (1.0-3.0); HEMATOCRIT 45.8 % (40.0-54.0); HEMOGLOBIN 15.6 g/dL (14.0-18.0); LYMPHOCYTES PERCENT AUTO 4.3 % (20.5-50.1); MEAN CORPUSCULAR HEMOGLOBIN 29.9 pg (27.0-34.0); MEAN CORPUSCULAR HGB CONC 34.1 g/dL (33.0-35.0); MEAN CORPUSCULAR VOLUME 87.9 fL (80-100); NEUTROPHILS PERCENT AUTO 93.7 % (42.2-75.2); PLATELET COUNT,PLT 350 10^3/uL (150-450); RED BLOOD CELL COUNT 5.21 10^6/uL (4.6-6.2); WHITE BLOOD CELL COUNT,WBC 9.4 10^3/uL (5.0-10.0)
[2023-10-26] MEDS: diphenhydrAMINE 50 MG/ML SDV IVPUSH ONE (17:59)
[2023-10-26] MEDS: methylPREDNISolone Sodium Succinate 40 MG/1 ML SDV IVPUSH ONE (17:59)
[2023-10-26] MEDS: Albuterol/Ipratropium 3.0-0.5 MG/3 ML Neb Soln NEB ONE (18:00)
[2023-10-26] MEDS: Magnesium Sulfate/Water Premix 2 GM in Premix Bag 1 BAG IV ONE (18:03)
[2023-10-26] MEDS: LORazepam 2 MG/ML SDV IVPUSH ONE ×3 (18:16→22:29)
[2023-10-26 18:17] LABS: INR 0.9 (0.9-1.2)
[2023-10-26 18:19] LABS: A/G RATIO 1.1; ALBUMIN 4.1 g/dL (3.4-5.0); ANION GAP 16.1 mEq/L (7-13); BILIRUBIN TOTAL 0.4 mg/dL (0.2-1.0); BUN/CREATININE RATIO 10.4 (No establ ref range); CALCIUM 9.5 mg/dL (8.5-10.1); CREATININE 0.96 mg/dL (0.70-1.30); EST CRCL DRUG DOSING (CG) 87.57 mL/min; MAGNESIUM 2.3 mg/dL (1.8-2.4); POTASSIUM,K 4.1 mmol/L (3.5-5.1); PROTEIN TOTAL,TP 7.9 g/dL (6.4-8.2)
[2023-10-26 18:41] LABS: CORONAVIRUS COVID-19 NAA NEGATIVE (NEGATIVE); INFLUENZA A NAA NEGATIVE (NEGATIVE); INFLUENZA B NAA NEGATIVE (NEGATIVE)
[2023-10-26] MEDS: Albuterol 6.7 GM Inhaler INH ONE (18:54)
[2023-10-26] MEDS: Albuterol 0.083% 2.5 MG/3 ML Neb Soln NEB ONE (20:37)
[2023-10-26] MEDS: Dexamethasone 4 MG/ML SDV IVPUSH ONE (20:37)
[2023-10-26] MEDS: Sodium Chloride 0.9% 1,000 ML IV ONE ×2 (20:38→21:15)
[2023-10-26] MEDS: Sodium Chloride 0.9% 10 ML Syringe FLUSH PRN (20:38)
[2023-10-26 21:03] LABS: AMPHETAMINES,URINE NEGATIVE (NEGATIVE); BARBITURATES,URINE NEGATIVE (NEGATIVE); BENZODIAZEPINE,URINE NEGATIVE (NEGATIVE); MDMA (ECSTASY), URINE NEGATIVE (NEGATIVE); METHADONE,URINE NEGATIVE (NEGATIVE); METHAMPHETAMINES,URINE NEGATIVE (NEGATIVE); OPIATES,URINE NEGATIVE (NEGATIVE); OXYCODONE,URINE NEGATIVE (NEGATIVE); PHENCYCLIDINE,URINE NEGATIVE (NEGATIVE); TCA,URINE NEGATIVE (NEGATIVE)
[2023-10-26] MEDS: Iopamidol 755 Mg/ML 100 ML Bottle IVPUSH ONE (22:38)
[2023-10-26] MEDS: propofoL 100 ML IV SCH (23:10)
[2023-10-26] MEDS: Midazolam 1 MG/ML 2 ML SDV IVPUSH PRN (23:11)
[2023-10-26] MEDS: Rocuronium 100 MG/10 ML MDV IVPUSH ONE (23:11)
[2023-10-26] MEDS ORDERED: Azithromycin 500 MG in Sodium Chloride 0.9% 250 ML IV ONE (23:48)
[2023-10-26] MEDS: Midazolam 50 MG in Sodium Chloride 0.9% 40 ML IV SCH (23:53)
[2023-10-26] MEDS: cefTRIAXone 1 GM Vial IVPUSH ONE (23:57)
== END 2023-10-27 01:47 ==
LOC: DL.ED 17:31
DX: J44.1 Chronic obstructive pulmonary disease with (acute) exacerbation (principal); J96.90 Respiratory failure, unspecified, unspecified whether with hypoxia or hypercapnia; Z79.2 Long term (current) use of antibiotics; Z79.1 Long term (current) use of non-steroidal anti-inflammatories (NSAID); Z79.52 Long term (current) use of systemic steroids; Z79.899 Other long term (current) drug therapy; Z88.8 Allergy status to other drugs, medicaments and biological substances
CPT/HCPCS: 0240U; 31500; 36415; 43752; 51702; 71046; 71275; 80053; 80305-QW; 83735; 84443; 84484; 85025; 85379; 85610; 96361; 96365; 96366; 96367; 96368; 96375; 96376; 99285; 99285-25; A9270-GY; J0696; J1100; J1200; J2060; J2250; J2704; J2919; J3475; J3490; J7030; J7613-GY; J7620-GY; Q9967